=== PATIENT | female | born 1965 | race Caucasian/White ===

== ENCOUNTER → 2020-06-04 12:21 | Day surgery (SDC) | payer MEDICARE, BC, SELFPAY ==
[2020-06-04 12:52] VITALS: BMI 33.5
[2020-06-04] MEDS: eptinezumab-jjmr 100 MG in sodium chloride 0.9% (100 ml) 100 ML 202 MG IV (13:00)
[2020-06-04 13:03] VITALS: BMI 30.7
[2020-06-04 13:04] VITALS: BP 108/73; PULSE 109; RESP 18; TEMP 37.6; O2SAT 97
== END ==
LOC: OPS 12:34
PROVIDERS: PCP Internal Medicine; Visit Provider Internal Medicine
DX: G43.711 Chronic migraine without aura, intractable, with status migrainosus (principal)
CPT/HCPCS: 96365; J3032

== ENCOUNTER → 2020-09-02 13:08 | Day surgery (SDC) | payer BC, MEDICARE, SELFPAY ==
[2020-09-02 13:33] VITALS: BP 117/71; PULSE 90; RESP 16; TEMP 36.6; O2SAT 95
== END ==
PROVIDERS: PCP Internal Medicine; Visit Provider Internal Medicine
DX: G43.711 Chronic migraine without aura, intractable, with status migrainosus (principal)
CPT/HCPCS: 96365; J3032

== ENCOUNTER → 2020-09-05 12:50 | Day surgery (SDC) | payer BC, MEDICARE, SELFPAY ==
[2020-09-05 13:08] VITALS: BP 136/69; PULSE 90; RESP 18; TEMP 37.6; O2SAT 99
== END ==
PROVIDERS: PCP Internal Medicine; Visit Provider Internal Medicine
DX: G43.711 Chronic migraine without aura, intractable, with status migrainosus (principal)
CPT/HCPCS: 96360; J3032

== ENCOUNTER 2020-09-24 11:33 | Emergency (ER) | payer BC, MEDICARE, SELFPAY ==
[2020-09-24 12:00] VITALS: BP 101/70; PULSE 89; RESP 15; TEMP 36.5; O2SAT 98; BMI 28.0
--- NOTE | 2020-09-24 12:33 | ED_ITS ---
HPI - Headache General: Chief Complaint: Headache Stated Complaint: migraine *19 days Time Seen by Provider: 09/24/20 12:32 Source: patient Mode of arrival: ambulatory Limitations: no limitations History of Present Illness: HPI Narrative: Patient is a 55-year-old female who presents to ED today with complaints of a migraine headache over the past 19 days. Patient tells me she is originally from [place] and sees a migraine specialist there. She states over the past 19 days she has tried several abortive medications all without relief. She tells me she does monthly injecti ons for her migraine headaches. She states she is going on vacation on Tuesday to [place] and would like her headache subsided by then. Patient tells me she has had to seek emergency evaluation for refractory headaches previously. She tells me normally they treat her with IV steroids, Nubain, and Zofran. MD elicited complaint: headache Pertinent past history: migraines Onset (ago): day(s) Onset description: gradually Exacerbating factors: light and noise Relieving factors: nothing Associated symptoms: Reports no associated symptoms; Deny chest pain, confusion, fever(s), malaise, nausea, rash or vomiting Review of Systems Const: Denies: fever(s), chills, body aches, change in appetite, change in weight, fatigue, malaise or night sweats Eyes: Reports: photophobia; Denies: change in vision, blurry vision, floaters or seeing flashes Card: Denies: chest pain Resp: Denies: dyspnea GI: Denies: abdominal pain, nausea or vomiting Musc: Denies: neck pain, back pain or joint pain Skin/Breast: Denies: rash Neuro: Reports: headache(s); Denies: numbness in extremities, weakness in extremities, sensory changes, lack of coordination, difficulty walking, dizziness, vertigo, confusion, behavioral changes, Slurred speech present, difficulty communicating thoughts or seizure- like activity Physical Exam Const: COMMON NORMALS: no acute distress, average body habitus, patient oriented x3, no limitations, healthy appearing, alert and well nourished GENERAL APPEARANCE: cooperative ORIENTATION/CONSCIOUSNESS: Yes awake, Yes oriented to person, Yes oriented to place and Yes oriented to time HENMT: COMMON NORMALS: normocephalic and atraumatic HEAD & SCALP: normocephalic and atraumatic Neck/C-Spine: COMMON NORMALS: full ROM and no meningeal signs Neuro: HAN COMA SCALE: document GCS findings Han coma scale eye opening: Spontaneous Han coma scale verbal response: Orientated [place] coma scale motor response: [place] commands Han coma scale total score: 15 COMMON NORMALS: patient oriented x3, CN's II-XII intact bilaterally, moves all extremities, no focal motor deficits and no sensory deficits noted SENSORIUM/ORIENTATION: Yes alert, Yes oriented to person, Yes oriented to place and Yes oriented to time MENINGEAL SIGNS: Yes no meningeal signs Skin: COMMON NORMALS: no rashes or lesions noted GENERAL SKIN EXAM: no rashes or lesions noted Course Reevaluation(s): Reevaluation #1: Patient reporting no relief from IV dexamethasone, zofran, and depakote. Will try DHE. I have spoken to patient regarding my hesitancy due to lack of evidence using narcotic pain medications for migraine relief. Reevaluation #2: Patient states VAZQUEZ is down from an 8/10 to a 4 and feels comfortable going home at this time. Vital Signs: Vital signs: Vital Signs Temperature 97.7 F 09/24/20 12:00 Pulse Rate 89 09/24/20 12:00 Respiratory Rate 15 09/24/20 12:00 Blood Pressure 101/70 09/24/20 12:00 Pulse Oximetry 98 09/24/20 12:00 Discharge Plan Discharge Patient Disposition: Home Clinical Impression: Migraine Qualifiers: Migraine type: unspecified Status migrainosus presence: with status migrainosus Intractability: not intractable Qualified Code(s): G43.901 - Migraine, unspecified, not intractable, with status migrainosus Condition: Stable Prescriptions: No Action cyclobenzaprine 10 mg Tablet 10 mg PO BID PRN (Reason: Headache) RF: 0 atorvastatin 40 mg Tablet 40 mg PO QPM RF: 0 dihydroergotamine [Migranal] 0.5 mg/pump act. (4 mg/mL) [place],Non-Aerosol 1 spray INTRANASAL Q15M PRN (Reason: Headache) RF: 0 hydroxyzine HCl 50 mg Tablet 50 mg PO TID PRN (Reason: Migraine Headache) RF: 0 diphenhydramine HCl [Benadryl] 50 mg/mL Solution 100 mg IM BID PRN (Reason: Migraine Headache) RF: 0 levetiracetam [Keppra] 250 mg Tablet 250 mg PO BID PRN (Reason: Migraine Headache) RF: 0 chlorpromazine 25 mg Tablet 25 mg PO Q6H PRN (Reason: Headache) RF: 0 lidocaine [Lidoderm] 5 % Adhesive Patch,Medicated 1 patch transdermal DAILY PRN (Reason: Migraine Headache) RF: 0 clonazepam 2 mg Tablet 2 mg PO BID RF: 0 benztropine 2 mg Tablet 2 mg PO BID RF: 0 fluticasone propionate [Flonase] 50 mcg/actuation [place],Suspension 50 mcg INTRANASAL DAILY RF: 0 candesartan 8 mg Tablet 8 mg PO BID RF: 0 diclofenac sodium [Voltaren] 1 % Gel 2 g TOPICAL BID PRN (Reason: Pain) RF: 0 bacillus coagulans-inulin 1 billion-250 cell-mg Capsule 2 cap PO DIRECTED RF: 0 Vyepti 100 mg/mL Solution 100 mg IV DIRECTED RF: 0 melatonin 10 mg Tablet 10 mg PO QPM RF: 0 methocarbamol [Robaxin] 500 mg Tablet 500 mg PO QID PRN (Reason: Headache) RF: 0 methylphenidate HCl [Ritalin] 10 mg Tablet 10 mg PO DAILY RF: 0 ondansetron HCl [Zofran] 8 mg Tablet 8 mg PO Q8H PRN (Reason: Nausea) RF: 0 prochlorperazine maleate [Compazine] 10 mg Tablet 10 mg PO BID PRN (Reason: Nausea) RF: 0 venlafaxine [Effexor] 100 mg Tablet 150 mg PO DAILY RF: 0 potassium chloride [K-Dur] 20 mEq Tablet,Er Particles/Crystals 20 meq PO BID RF: 0 promethazine [Phenergan] 50 mg Tablet 50 mg PO TID PRN (Reason: Nausea) RF: 0 zolpidem [Ambien] 10 mg Tablet 10 mg PO QPM PRN (Reason: Sleep) RF: 0 tizanidine [Zanaflex] 4 mg Capsule 8 mg PO QPM RF: 0 Ubrelvy 50 mg Tablet 50 mg PO BID PRN (Reason: Headache) RF: 0 calcium 500 mg Tablet 500 mg PO DAILY RF: 0 multivitamin Tablet,Chewable 1 tab PO DAILY RF: 0 cholecalciferol (vitamin D3) [Vitamin D3] 25 mcg (1,000 unit) Tablet,Chewable 25 mcg PO DAILY RF: 0 magnesium 500 mg Tablet 15 mg PO DAILY RF: 0 Discharge Orders: Discharge ED (Routine); Ordered 09/24/20 Ordered By: Kimberly Mary Referrals: Neftaly Ingram MD [Primary Care Provider] - Patient Instructions: Headache - Migraine (Adult), Migraine Headache (ED) Coding Level of Care Code ED Lead Data Architect for Chg Fwd Exam Detailed
[2020-09-24] MEDS: sodium chloride 0.9% 1,000 ML 999 ML IV (13:20)
[2020-09-24] MEDS: ondansetron 2 mg/ML SDV 2 mL 4 MG IVP (13:21)
[2020-09-24] MEDS: dexamethasone 10 mg/mL INJ 8 MG IV (13:21)
[2020-09-24] MEDS: valproic acid inj 500 MG in sodium chloride 0.9% 50 ML 55 MG IV (13:21)
[2020-09-24] MEDS: dihydroergotamine 1 mg/mL Inj IVP (14:41)
[2020-09-24] MEDS: metoclopramide 5 mg/mL SDV 2 mL 10 MG IVP (14:47)
[2020-09-24] MEDS: diphenhydrAMINE 50 mg/mL SDV 1mL 100 MG IVP (15:35)
[2020-09-24 16:30] VITALS: BP 128/57; PULSE 84; O2SAT 99
--- NOTE | 2020-09-24 16:31 | PC.NURSE ---
vitals printed in chart
== END 2020-09-24 16:31 | disposition home or self-care (01) ==
PROVIDERS: Emergency Provider Physician Assistant; PCP Internal Medicine
DX: G43.901 Migraine, unspecified, not intractable, with status migrainosus (principal)
CPT/HCPCS: 96365; 96375; 99284; J1100; J1110; J1200; J2405; J2765; J7030

== ENCOUNTER 2020-10-09 14:34 | Emergency (ER) | payer BC, MEDICARE, SELFPAY ==
[2020-10-09 14:51] VITALS: BP 111/67; PULSE 86; RESP 16; TEMP 36.6; O2SAT 96; BMI 27.4
--- NOTE | 2020-10-09 16:27 | W.ED.HA ---
HPI - Headache General: Chief Complaint: Headache Stated Complaint: migraine Time Seen by Provider: 10/09/20 16:26 History of Present Illness: HPI Narrative: Patient is a 55-year-old female comes to the ED with migraine. Patient says she has a history of migraines. She states she sees a specialist in [place] for her migraines. This current migraine started 8 days ago. She says she is used her dihydroergotamine nasal spray and has not helped. She also has been taking Benadryl and promethazine to help with symptoms. Migraine is similar to her past migraines but states this one seems a more severe. Pain is located retro-orbital and is bilateral in the frontal region of head. She rates it currently an 9 out of 10. She has nausea and photophobia with it as well. She also says loud noises make it worse. She denies any neurological symptoms such as vision changes, numbness/tingling/weakness to extremities or face. Denies any fever, chills, emesis, abdominal pain, bladder or bowel symptoms. Associated symptoms: Deny chest pain, fever(s), nausea, rash or vomiting Review of Systems Const: Denies: fever(s), chills or fatigue Eyes: Reports: photophobia; Denies: change in vision or eye discomfort ENMT: Denies: throat pain, odynophagia, nasal discharge or nasal congestion Card: Denies: chest pain, palpitations, edema, swelling of feet/ankles, dyspnea on exertion or orthopnea Resp: Denies: dyspnea, productive cough or non-productive cough GI: Denies: abdominal pain, nausea, vomiting, diarrhea, constipation or hematochezia : Denies: flank pain, dysuria or hematuria Musc: Denies: neck pain, back pain or extremity swelling Skin/Breast: Denies: rash or new lesions Neuro: Reports: headache(s); Denies: numbness in extremities or weakness in extremities Physical Exam Const: COMMON NORMALS: no acute distress, patient oriented x3 and alert GENERAL APPEARANCE: cooperative and comfortable HENMT: COMMON NORMALS: normocephalic HEAD & SCALP: normocephalic MOUTH: Normal oral and palatal mucosa present THROAT: posterior oropharynx normal and uvula midline Neck/C-Spine: COMMON NORMALS: supple GENERAL: Yes normal visual inspection Resp: COMMON NORMALS: normal respiratory effort, No retractions, No use of accessory muscles and clear to auscultation bilaterally AUSCULTATION: clear to auscultation bilaterally Cardio: COMMON NORMALS: regular rate, regular rhythm, S1 normal heart sound present, S2 normal heart sound present, No gallops present (Cardio), No clicks present (Cardio), No murmurs present (Cardio) and Peripheral pulses 2+ throughout RATE: regular rate RHYTHM: regular rhythm HEART SOUNDS: S1 normal heart sound present and S2 normal heart sound present PERIPHERAL PULSES: Peripheral pulses 2+ throughout GI: COMMON NORMALS: Normal to inspection, nondistended, normoactive bowel sounds present, Soft to palpation, non-tender and no masses PALPATION: Yes Soft to palpation : COMMON NORMALS: Yes no CVA tenderness BLADDER/KIDNEY EXAM: Yes no CVA tenderness Back/Pelvis: COMMON NORMALS: no CVA tenderness Extremity: COMMON NORMALS: normal to inspection Neuro: COMMON NORMALS: patient oriented x3, CN's II-XII intact bilaterally, moves all extremities, no focal motor deficits and no sensory deficits noted SENSORIUM/ORIENTATION: Yes alert SENSORY EXAM: Yes extremities (intact) MOTOR EXAM: 5/5 motor strength present throughout Skin: GENERAL SKIN EXAM: dry skin Course Vital Signs: Vital signs: Vital Signs Temperature 97.8 F 10/09/20 14:51 Pulse Rate 77 10/09/20 20:59 Respiratory Rate 18 10/09/20 20:59 Blood Pressure 144/88 10/09/20 20:59 Pulse Oximetry 98 10/09/20 20:59 MDM - Headache MDM Narrative: Medical decision making narrative: Patient is a 55-year-old female comes in the ED with a migraine. Patient has been having a migraine currently for the last 8 days. She has a history of migraines. Neuro exam was normal and CT of head showed no acute findings. Patient was given IV Toradol, Decadron, Reglan, Benadryl and symptoms did not improve. I then initiated the DHE protocol and patient was given the full protocol with minimal improvement in migraine. She was then given a dose of Phenergan and IV Dilaudid and her migraine improved. She was discharged home and told to follow-up with her PCP in 7 to 10 days for reevaluation. Return to ED regards given. Patient understood agree with plan. Imaging Data^: CT Head: Attestation: I personally reviewed and interpreted this imaging study as follows: Radiologist's impression: [address] [address] [address] Scan Report Signed Patient: Tammy Radford Unit #: [id number] : 1965 Age/Sex: 55 / F ADM Date: 10/09/20 Loc: ER Room/Bed: Attending Dr: Ordering Provider/Ordering MD: Petar Chapin Date of Service: 10/09/20 Procedure(s): CT head wo con* [id number] Accession Number(s): [id number] Report Number: [id number] PROCEDURE INFORMATION: Exam: CT Head Without Contrast Exam date and time: 10/09/2020 4:37 PM Age: 55 years old Clinical indication: Pain; Other: N/v; Headache; Migraine; Additional info: Migraine for 8 days TECHNIQUE: Imaging protocol: Computed tomography of the head without contrast. Total images: 209 Radiation optimization: All CT scans at this facility use at least one of these dose optimization techniques: automated exposure control; mA and/or kV adjustment per patient size (includes targeted exams where dose is matched to clinical indication); or iterative reconstruction. COMPARISON: No relevant prior studies available. RADIATION DOSE METRICS: Total DLP (mGy-cm): 866.79 FINDINGS: Brain: No evidence of active or acute intracranial pathologic process, hemorrhage, or trauma. No visible evidence of diffuse cerebral edema or generalized demyelination. No mass effect. No midline shift. No hyperdense MCA or insular ribbon sign. Cerebral ventricles: No ventriculomegaly. Paranasal sinuses: No visible evidence of active paranasal sinus disease. Evidence of mild chronic right ethmoid sinusitis. Previous bilateral antrectomies. Mastoid air cells: Visualized mastoid air cells are well aerated. Bones/joints: Unremarkable. No acute fracture. Soft tissues: Unremarkable. CT/CT head wo con* [id number] IMPRESSION: No evidence of active or acute intracranial pathologic process, hemorrhage, or trauma. Radiation Dose CTDIVOL = (mGy): DLP = 866.79 (mGy-cm) Dictated By: Talib Grimm Signed By: Talib Grimm Signed Date/Time: 10/09/201737 DD/ 36 Discharge Plan Discharge Patient Disposition: Home Clinical Impression: Migraine Qualifiers: Migraine type: without aura Status migrainosus presence: with status migrainosus Intractability: not intractable Qualified Code(s): G43.001 - Migraine without aura, not intractable, with status migrainosus Condition: Stable Prescriptions: No Action cyclobenzaprine 10 mg Tablet 10 mg PO BID PRN (Reason: Headache) RF: 0 atorvastatin 40 mg Tablet 40 mg PO QPM RF: 0 dihydroergotamine [Migranal] 0.5 mg/pump act. (4 mg/mL) [place],Non-Aerosol 1 spray INTRANASAL Q15M PRN (Reason: Headache) RF: 0 hydroxyzine HCl 50 mg Tablet 50 mg PO TID PRN (Reason: Migraine Headache) RF: 0 diphenhydramine HCl [Benadryl] 50 mg/mL Solution 100 mg IM BID PRN (Reason: Migraine Headache) RF: 0 levetiracetam [Keppra] 250 mg Tablet 250 mg PO BID PRN (Reason: Migraine Headache) RF: 0 chlorpromazine 25 mg Tablet 25 mg PO Q6H PRN (Reason: Headache) RF: 0 lidocaine [Lidoderm] 5 % Adhesive Patch,Medicated 1 patch transdermal DAILY PRN (Reason: Migraine Headache) RF: 0 clonazepam 2 mg Tablet 2 mg PO BID RF: 0 benztropine 2 mg Tablet 2 mg PO BID RF: 0 fluticasone propionate [Flonase] 50 mcg/actuation [place],Suspension 50 mcg INTRANASAL DAILY RF: 0 candesartan 8 mg Tablet 8 mg PO BID RF: 0 diclofenac sodium [Voltaren] 1 % Gel 2 g TOPICAL BID PRN (Reason: Pain) RF: 0 bacillus coagulans-inulin 1 billion-250 cell-mg Capsule 2 cap PO DIRECTED RF: 0 Vyepti 100 mg/mL Solution 100 mg IV DIRECTED RF: 0 melatonin 10 mg Tablet 10 mg PO QPM RF: 0 methocarbamol [Robaxin] 500 mg Tablet 500 mg PO QID PRN (Reason: Headache) RF: 0 methylphenidate HCl [Ritalin] 10 mg Tablet 10 mg PO DAILY RF: 0 ondansetron HCl [Zofran] 8 mg Tablet 8 mg PO Q8H PRN (Reason: Nausea) RF: 0 prochlorperazine maleate [Compazine] 10 mg Tablet 10 mg PO BID PRN (Reason: Nausea) RF: 0 venlafaxine [Effexor] 100 mg Tablet 150 mg PO DAILY RF: 0 potassium chloride [K-Dur] 20 mEq Tablet,Er Particles/Crystals 20 meq PO BID RF: 0 promethazine [Phenergan] 50 mg Tablet 50 mg PO TID PRN (Reason: Nausea) RF: 0 zolpidem [Ambien] 10 mg Tablet 10 mg PO QPM PRN (Reason: Sleep) RF: 0 tizanidine [Zanaflex] 4 mg Capsule 8 mg PO QPM RF: 0 Ubrelvy 50 mg Tablet 50 mg PO BID PRN (Reason: Headache) RF: 0 calcium 500 mg Tablet 500 mg PO DAILY RF: 0 multivitamin Tablet,Chewable 1 tab PO DAILY RF: 0 cholecalciferol (vitamin D3) [Vitamin D3] 25 mcg (1,000 unit) Tablet,Chewable 25 mcg PO DAILY RF: 0 magnesium 500 mg Tablet 15 mg PO DAILY RF: 0 Discharge Orders: Discharge ED (Routine); Ordered 10/09/20 Ordered By: Petar Chapin Referrals: Neftaly Ingram MD [Primary Care Provider] - Discharge Diet: Regular Discharge Activity: Resume usual activity Patient Instructions: Migraine Headache (ED) Activity Restrictions/Additional Instructions: Follow-up with medical provider as directed in 7 to 10 days reevaluation. Continue taking all home medications as prescribed. Return to the ER or your medical provider if condition worsens. Please read and understand discharge instructions. Thank you for choosing [facility] for your healthcare needs today. Please realize this is an emergency room and that we are providing you with a medical screening exam and this may not be complete and all inclusive of all the testing and or work up that you may need to determine your ailment or severity of your illness. It is very important that you follow up as instructed or that you return to the Emergency Department should you have concerns or if your condition changes or worsens in any way. Coding Level of Care Code ED Road Production General Manager for Maria Fernanda Fwtiffany Exam Comprehensive
--- NOTE | 2020-10-09 16:37 | CTR_ITS ---
PROCEDURE INFORMATION: Exam: CT Head Without Contrast Exam date and time: 10/09/2020 4:37 PM Age: 55 years old Clinical indication: Pain; Other: N/v; Headache; Migraine; Additional info: Migraine for 8 days TECHNIQUE: Imaging protocol: Computed tomography of the head without contrast. Total images: 209 Radiation optimization: All CT scans at this facility use at least one of these dose optimization techniques: automated exposure control; mA and/or kV adjustment per patient size (includes targeted exams where dose is matched to clinical indication); or iterative reconstruction. COMPARISON: No relevant prior studies available. RADIATION DOSE METRICS: Total DLP (mGy-cm): 866.79 FINDINGS: Brain: No evidence of active or acute intracranial pathologic process, hemorrhage, or trauma. No visible evidence of diffuse cerebral edema or generalized demyelination. No mass effect. No midline shift. No hyperdense MCA or insular ribbon sign. Cerebral ventricles: No ventriculomegaly. Paranasal sinuses: No visible evidence of active paranasal sinus disease. Evidence of mild chronic right ethmoid sinusitis. Previous bilateral antrectomies. Mastoid air cells: Visualized mastoid air cells are well aerated. Bones/joints: Unremarkable. No acute fracture. Soft tissues: Unremarkable. CT/CT head wo con* [id number] IMPRESSION: No evidence of active or acute intracranial pathologic process, hemorrhage, or trauma. Radiation Dose CTDIVOL = (mGy): DLP = 866.79 (mGy-cm)
[2020-10-09] MEDS: metoclopramide 5 mg/mL SDV 2 mL 10 MG IVP (17:01)
[2020-10-09] MEDS: ketorolac 30 mg/mL INJ IVP (17:01)
[2020-10-09] MEDS: diphenhydrAMINE 50 mg/mL SDV 1mL 25 MG IVP (17:01)
[2020-10-09] MEDS: dexamethasone 4 mg/mL INJ 10 MG IVP (17:02)
[2020-10-09] MEDS: sodium chloride 0.9% 500 ML 999 ML IV (17:05)
[2020-10-09] MEDS: diphenhydrAMINE 50 mg/mL SDV 1mL IVP (18:16)
[2020-10-09] MEDS: dihydroergotamine 1 mg/mL Inj IVP ×4 (18:17→20:31)
[2020-10-09 19:09] VITALS: BP 116/60; PULSE 92; RESP 18; O2SAT 98
[2020-10-09 20:11] VITALS: BP 115/60; PULSE 68; RESP 17; O2SAT 98
[2020-10-09] MEDS: promethazine 25 mg/mL SDV 1 mL IM (20:55)
[2020-10-09] MEDS: HYDROmorphone 1 mg/mL INJ 1 mL IVP (20:56)
[2020-10-09 20:59] VITALS: BP 144/88; PULSE 77; RESP 18; O2SAT 98
[2020-10-09 21:35] VITALS: BP 161/97; PULSE 78; RESP 17; O2SAT 97
== END 2020-10-09 21:35 | disposition home or self-care (01) ==
PROVIDERS: Emergency Provider Physician Assistant; PCP Internal Medicine
DX: G43.001 Migraine without aura, not intractable, with status migrainosus (principal)
CPT/HCPCS: 70450; 96372; 96374; 96375; 96376; 99284; J1100; J1110; J1170; J1200; J1885; J2550; J2765; J7040

== ENCOUNTER 2020-10-20 11:29 | Emergency (ER) | payer BC, MEDICARE, SELFPAY ==
[2020-10-20 11:49] VITALS: BP 98/64; PULSE 90; RESP 16; TEMP 36.7; O2SAT 99; BMI 27.4
[2020-10-20 12:31] VITALS: BP 107/71; PULSE 82; TEMP 36.8; O2SAT 99
--- NOTE | 2020-10-20 12:40 | XRR_ITS ---
PROCEDURE INFORMATION: Exam: XR Lumbosacral Spine Exam date and time: 10/20/2020 12:40 PM Age: 55 years old Clinical indication: Injury or trauma; Fall; Blunt trauma (contusions or hematomas) TECHNIQUE: Imaging protocol: XR of the lumbosacral spine. Views: 2 or 3 views. COMPARISON: No relevant prior studies available. FINDINGS: Bones/joints: Normal. No acute fracture. Normal alignment. Soft tissues: Unremarkable. XR/XR lumbar spine 2-3V* [id number] IMPRESSION: No acute findings.
--- NOTE | 2020-10-20 12:53 | ED_ITS ---
HPI - Back Pain/Injury General: Chief Complaint: Back Pain/Injury Stated Complaint: BACK PAIN/FALL Time Seen by Provider: 10/20/20 12:32 History of Present Illness: HPI Narrative: Patient states she tripped on a rug fell against a corner vanity striking the back area lower left side few days ago. She said she originally had bruising now she says continue to hurt. MD elicited complaint: back pain and fall Pertinent past history: prior back pain Onset (ago): day(s) Timing: constant Severity: moderate Similar Symptoms Previously: Yes Quality: aching Location: left lower back Radiation: none Exacerbating factors: movement Relieving factors: movement Context: fall Associated symptoms: Reports no associated symptoms; Deny abdominal pain, chills, fever(s), nausea or vomiting Review of Systems Const: Denies: fever(s), chills or body aches Eyes: Denies: change in vision or blurry vision ENMT: Denies: throat pain or nasal congestion Card: Denies: chest pain or dyspnea on exertion Resp: Denies: dyspnea, productive cough or non-productive cough GI: Denies: abdominal pain, nausea or vomiting Musc: Reports: back pain; Denies: extremity pain Skin/Breast: Denies: rash Neuro: Denies: headache(s) Psych: Denies: anxiety or depression [place]/Lymph: Denies: easy bruising Physical Exam Const: COMMON NORMALS: no acute distress, average body habitus and patient oriented x3 HENMT: COMMON NORMALS: normocephalic HEAD & SCALP: normal to inspection and normocephalic FACE & SINUS: normal facial exam Eye: COMMON NORMALS: conjunctivae normal GENERAL EYE: appearance normal, both eyes and all related structures CONJUNCTIVA: Yes conjunctivae normal Neck/C-Spine: COMMON NORMALS: no JVD Chest: COMMONS NORMALS: normal inspection of the chest Resp: COMMON NORMALS: normal respiratory effort and clear to auscultation bilaterally AUSCULTATION: clear to auscultation bilaterally Cardio: COMMON NORMALS: no JVD, regular rate and regular rhythm RATE: regular rate RHYTHM: regular rhythm GI: COMMON NORMALS: Normal to inspection, nondistended, normoactive bowel sounds present Back/Pelvis: COMMON NORMALS: thoracic and lumbar spine normal to inspection THORACIC SPINE/UPPER BACK: Yes normal to inspection LUMBAR SPINE/LOWER BACK: Yes normal to inspection and Yes paraspinal muscle tenderness Lumbar paraspinal muscle tenderness: left PELVIS: Yes buttocks normal Extremity: COMMON NORMALS: normal to inspection and full ROM Neuro: COMMON NORMALS: patient oriented x3 Course Vital Signs: Vital signs: Vital Signs Temperature 98.3 F 10/20/20 12:31 Pulse Rate 78 10/20/20 13:43 Respiratory Rate 16 10/20/20 11:49 Blood Pressure 103/58 10/20/20 13:43 Pulse Oximetry 97 10/20/20 13:43 MDM - Back Pain/Injury MDM Narrative: Medical decision making narrative: Patient requesting strong pain medication for her pain. Advised her that based on x-ray findings physical findings and see no reason for strong pain medication. Encourage her to continue take Tylenol apply ice and moist heat to area and follow-up primary care provider. Discharge Plan Discharge Patient Disposition: Home Clinical Impression: Contusion Qualifiers: Encounter type: initial encounter Contusion area: lower back Qualified Code(s): S30.0XXA - Contusion of lower back and pelvis, initial encounter Condition: Stable Prescriptions: No Action cyclobenzaprine 10 mg Tablet 10 mg PO BID PRN (Reason: Headache) RF: 0 atorvastatin 40 mg Tablet 40 mg PO QPM RF: 0 dihydroergotamine [Migranal] 0.5 mg/pump act. (4 mg/mL) [place],Non-Aerosol 1 spray INTRANASAL Q15M PRN (Reason: Headache) RF: 0 hydroxyzine HCl 50 mg Tablet 50 mg PO TID PRN (Reason: Migraine Headache) RF: 0 diphenhydramine HCl [Benadryl] 50 mg/mL Solution 100 mg IM BID PRN (Reason: Migraine Headache) RF: 0 levetiracetam [Keppra] 250 mg Tablet 250 mg PO BID PRN (Reason: Migraine Headache) RF: 0 chlorpromazine 25 mg Tablet 25 mg PO Q6H PRN (Reason: Headache) RF: 0 lidocaine [Lidoderm] 5 % Adhesive Patch,Medicated 1 patch transdermal DAILY PRN (Reason: Migraine Headache) RF: 0 clonazepam 2 mg Tablet 2 mg PO BID RF: 0 benztropine 2 mg Tablet 2 mg PO BID RF: 0 fluticasone propionate [Flonase] 50 mcg/actuation [place],Suspension 50 mcg INTRANASAL DAILY RF: 0 candesartan 8 mg Tablet 8 mg PO BID RF: 0 diclofenac sodium [Voltaren] 1 % Gel 2 g TOPICAL BID PRN (Reason: Pain) RF: 0 bacillus coagulans-inulin 1 billion-250 cell-mg Capsule 2 cap PO DIRECTED RF: 0 Vyepti 100 mg/mL Solution 100 mg IV DIRECTED RF: 0 melatonin 10 mg Tablet 10 mg PO QPM RF: 0 methocarbamol [Robaxin] 500 mg Tablet 500 mg PO QID PRN (Reason: Headache) RF: 0 methylphenidate HCl [Ritalin] 10 mg Tablet 10 mg PO DAILY RF: 0 ondansetron HCl [Zofran] 8 mg Tablet 8 mg PO Q8H PRN (Reason: Nausea) RF: 0 prochlorperazine maleate [Compazine] 10 mg Tablet 10 mg PO BID PRN (Reason: Nausea) RF: 0 venlafaxine [Effexor] 100 mg Tablet 150 mg PO DAILY RF: 0 potassium chloride [K-Dur] 20 mEq Tablet,Er Particles/Crystals 20 meq PO BID RF: 0 promethazine [Phenergan] 50 mg Tablet 50 mg PO TID PRN (Reason: Nausea) RF: 0 zolpidem [Ambien] 10 mg Tablet 10 mg PO QPM PRN (Reason: Sleep) RF: 0 tizanidine [Zanaflex] 4 mg Capsule 8 mg PO QPM RF: 0 Ubrelvy 50 mg Tablet 50 mg PO BID PRN (Reason: Headache) RF: 0 calcium 500 mg Tablet 500 mg PO DAILY RF: 0 multivitamin Tablet,Chewable 1 tab PO DAILY RF: 0 cholecalciferol (vitamin D3) [Vitamin D3] 25 mcg (1,000 unit) Tablet,Chewable 25 mcg PO DAILY RF: 0 magnesium 500 mg Tablet 15 mg PO DAILY RF: 0 Discharge Orders: Discharge ED (Routine); Ordered 10/20/20 Ordered By: Rodrigo Montemayor Referrals: Neftaly Ingram MD [Primary Care Provider] - Discharge Diet: Usual diet Discharge Activity: Increase activity as tolerated Patient Instructions: Contusion in Adults (ED) Activity Restrictions/Additional Instructions: Alternate ice and moist heat to area. Can take Tylenol 1000 mg as needed every 6 hours as needed for pain follow-up your primary care provider if no significant improvement Coding Level of Care Code ED Cheesemaker for Chg Fwd Exam Comprehensive
[2020-10-20 13:40] VITALS: BP 103/58; PULSE 76; O2SAT 99
[2020-10-20 13:43] VITALS: BP 103/58; PULSE 78; O2SAT 97
== END 2020-10-20 13:46 | disposition home or self-care (01) ==
PROVIDERS: Emergency Provider Nurse Practitioner Family; PCP Internal Medicine
DX: S30.0XXA Contusion of lower back and pelvis, initial encounter (principal); W18.09XA Striking against other object with subsequent fall, initial encounter
CPT/HCPCS: 72100; 99282

== ENCOUNTER → 2020-11-03 08:37 | Outpatient (BNVA) | payer BC, MEDICARE, SELFPAY | PROVIDERS: PCP Internal Medicine; Visit Provider Anesthesiology Pain Medicine | DX: G89.29 Other chronic pain (principal); M79.18 Myalgia, other site; M54.2 Cervicalgia; G43.909 Migraine, unspecified, not intractable, without status migrainosus; M54.81 Occipital neuralgia; Z79.891 Long term (current) use of opiate analgesic | CPT/HCPCS: 20553; 64405; 99205; J1030; J3490 ==

== ENCOUNTER 2021-01-12 12:41 | Outpatient (CLI) | payer BC, MEDICARE, SELFPAY ==
[2021-01-12 13:19] VITALS: BP 113/69; PULSE 84; RESP 16; TEMP 36.7; O2SAT 98; BMI 25.0
[2021-01-12 14:00] VITALS: BP 114/73; PULSE 75; RESP 16; O2SAT 99
[2021-01-12 15:01] VITALS: BP 115/66; PULSE 72; RESP 18; TEMP 36.7; O2SAT 98
== END 2021-01-12 12:42 | disposition home or self-care (01) ==
LOC: OPS 12:53
PROVIDERS: PCP Internal Medicine; Visit Provider Nurse Practitioner Family
DX: U07.1 COVID-19 (principal)
CPT/HCPCS: 96365

== ENCOUNTER 2021-02-22 07:39 | Emergency (ER) | payer BC, MEDICARE, SELFPAY ==
[2021-02-22 07:42] VITALS: BP 112/72; PULSE 91; RESP 18; TEMP 36.6; O2SAT 99; BMI 25.0
[2021-02-22 07:59] VITALS: BP 109/66; PULSE 86; RESP 18; O2SAT 98
--- NOTE | 2021-02-22 08:28 | W.ED.HA ---
HPI - Headache General: Chief Complaint: Headache Stated Complaint: SEVERE H/A Time Seen by Provider: 02/22/21 07:46 Source: patient Mode of arrival: ambulatory Limitations: no limitations History of Present Illness: HPI Narrative: 55-year-old female presents emergency department chief complaint of having severe migraine related headache that is been ongoing progressive getting worse in the last 4 days. Patient reports just had the recent of a grandchild in which he missed one of her Botox injections.. She reports that her sleeping habits as well as with weather changes increases her migraine amount and duration. She reports that she has also missed her Botox injection recently last couple of days prior to the of her grandchild. The patient reports that she had been taking her migraine medications to no avail. Patient reports this is been persistently ongoing for 4 days is getting worse. She does report some ocular involvement reporting that the pain is noted surrounding the top of her head. Radiating down both sides. MD elicited complaint: headache and migraine Onset (ago): day(s) (4) Onset description: gradually and while at rest Location: frontal, temporal and occipital Severity: severe Quality & Timing: aching and throbbing Exacerbating factors: light and noise Relieving factors: rest, prescription medication and dark room Associated symptoms: Reports nausea and vomiting; Deny neck stiffness Treatments prior to arrival: antiemetic and migraine medication Review of Systems GI: Reports: nausea and vomiting [facility] ED PFSH: Medical History Migraine Family History Mother Cancer RECTAL Father Graves disease Sister Migraines Grandmother Migraines Diabetes Hypertension Brother Hypertension Grandfather Dementia Social History (Updated 11/03/20 @ 09:18 by Yaneth Centeno LPN) Smoking and tobacco status: never smoked Alcohol intake: never Caregiver/support person: Yes Lives independently: Yes History of recent travel: No Physical Exam Narrative: EXAM NARRATIVE: Patient appears in a dark room wearing sunglasses appears to be in moderate distress due to pain and discomfort. No focal neuro deficits appreciated GCS 15, NIH of 0 Const: COMMON NORMALS: patient oriented x3 and healthy appearing EXAM LIMITATIONS: no altered mental status GENERAL APPEARANCE: not lethargic ORIENTATION/CONSCIOUSNESS: Yes awake, Yes oriented to person, Yes oriented to place and Yes oriented to time; not patient obtunded and not lethargic HENMT: COMMON NORMALS: normocephalic and atraumatic HEAD & SCALP: normocephalic and atraumatic Eye: COMMON NORMALS: Equal, round and reactive pupils present and EOMs intact bilaterally PUPIL: Yes Equal, round and reactive pupils present Neck/C-Spine: COMMON NORMALS: full ROM, supple, no meningeal signs and no JVD Lymph: LYMPHATIC: no lymphadenopathy noted Chest: COMMONS NORMALS: normal inspection of the chest and normal palpation of entire chest wall Resp: COMMON NORMALS: normal respiratory effort, No retractions and clear to auscultation bilaterally EFFORT & INSPECTION: Yes able to speak in complete sentences and Yes symmetric chest movement AUSCULTATION: clear to auscultation bilaterally Cardio: COMMON NORMALS: no JVD, regular rate and regular rhythm RATE: regular rate RHYTHM: regular rhythm GI: COMMON NORMALS: Normal to inspection, nondistended, normoactive bowel sounds present, Soft to palpation and non-tender INSPECTION: Yes normal to inspection PALPATION: Yes Soft to palpation : COMMON NORMALS: Yes no CVA tenderness BLADDER/KIDNEY EXAM: Yes no CVA tenderness Back/Pelvis: COMMON NORMALS: no CVA tenderness Extremity: COMMON NORMALS: normal to inspection and full ROM Neuro: COMMON NORMALS: patient oriented x3, CN's II-XII intact bilaterally, moves all extremities and no focal motor deficits SENSORIUM/ORIENTATION: Yes oriented to person, Yes oriented to place, Yes oriented to time and No lethargic MENINGEAL SIGNS: Yes no meningeal signs Psych: COMMON NORMALS: mental status grossly normal, Normal thought process present, cooperative and normal affect THOUGHT PROCESS: Normal thought process present Skin: COMMON NORMALS: no rashes or lesions noted GENERAL SKIN EXAM: no rashes or lesions noted Course ED course: Due to the patient's symptoms and condition lab work and imaging will be obtained we will continue to follow. Vital Signs: Vital signs: Vital Signs Temperature 97.9 F 02/22/21 07:42 Pulse Rate 73 02/22/21 10:32 Respiratory Rate 14 02/22/21 10:32 Blood Pressure 118/78 02/22/21 10:32 Pulse Oximetry 100 02/22/21 10:32 MDM - Headache MDM Narrative: Medical decision making narrative: Due to the patient's significant addition basic lab work was obtained patient provided several medications and seemed to improve her headache from a 10 pain scale down to a 5 out of 10 pain score prior to subsequent discharge patient was advised to further follow-up with primary care or her migraine physician in the next 1 week when she is advised to return in the interim if any of her symptoms persist or worse. Lab Data: Labs: Lab Results 02/22/21 02/22/21 02/22/21 08:41 08:41 08:41 WBC 8.9 10^3/uL 10^3/ uL (4.0-10.0) RBC 4.54 10^6/uL 10^6 /uL (4.1-5.3) Hgb 13.3 g/dL g/dL (11.5-15.3) Hct 42.5 % % (37.0-47.0) MCV 93.6 fl fl (81-99) MCH 29.3 pg pg (28.0-34.0) MCHC 31.3 g/dL g/dL (30.0-36.0) RDW 14.4 % % (12.1-15.1) Plt Count 289 10^3/cmm 10^3 /cmm (130-400) MPV 10.6 fL H fL (7.4-10.4) Neut % (Auto) 70.4 % % Lymph % (Auto) 21.3 % % [place] % (Auto) 5.3 % % Eos % (Auto) 2.1 % % Baso % (Auto) 0.7 % % Neut # (Auto) 6.25 10^3/uL 10^3 /uL (1.8-7.7) Lymph # (Auto) 1.9 10^3/uL 10^3/ uL (0.8-4.8) [place] # (Auto) 0.5 10^3/uL 10^3/ uL (0.2-0.9) Eos # (Auto) 0.2 10^3/uL 10^3/ uL (0.0-0.8) Baso # (Auto) 0.1 10^3/uL 10^3/ uL (0.0-0.1) Nucleated RBC % (a uto) 0 % % Nucleated RBCs # 0.0 /100WBC /100W BC Sodium 140 mmol/L mmol/L (136-145) Potassium 4.0 mmol/L mmol/L (3.5-5.1) Chloride 105 mmol/L mmol/L (98-107) Carbon Dioxide 25 mmol/L mmol/L (22-29) Anion Gap 14.0 (5-19) BUN 13 mg/dL mg/dL (6-20) Creatinine 0.6 mg/dL mg/dL (0.5-0.9) GFR Calculation 103.0 mL/min mL/m in (90-130) Glucose 77 mg/dL mg/dL (65-115) Calculated Osmolal ity 289 mOsm/kg mOsm/ kg (285-295) Calcium 9.0 mg/dL mg/dL (8.5-10.5) Total Bilirubin 0.3 mg/dL mg/dL (0.15-1.2) AST 13 U/L U/L (0-32) ALT 11 U/L U/L (0-33) Alkaline Phosphata se 95 IU/L IU/L (35-105) Total Protein 7.5 g/dL g/dL (6.6-8.7) Albumin 4.5 g/dL g/dL (3.5-5.2) Globulin 3.0 g/dL g/dL (1.3-4.6) Urine Color Yellow (Yellow) Urine Appearance Clear (CLEAR) Urine pH 6 (5-7) Ur Specific Gravit y 1.010 (1.005-1.030) Urine Protein Neg (Negative) Urine Glucose (UA) Norm (Normal) Urine Ketones Negative (Negative) Urine Blood Neg (Negative) Urine Nitrate Negative (Negative) Urine Bilirubin Neg (Negative) Urine Urobilinogen Norm mg/dL mg/dL (Negative) Ur Leukocyte Yu ase Negative (Negative) Discharge Plan Discharge Patient Disposition: Home Clinical Impression: Migraine, Headache Condition: Stable Prescriptions: New Zofran 4 mg tablet 4 mg PO Q8H PRN (Reason: nausea and vomiting) 4 Days Qty: 20 RF: 0 No Action clonazepam 1 mg tablet 1 mg PO .HS RF: 0 topiramate 100 mg tablet 100 mg PO BID RF: 0 silodosin 8 mg capsule 8 mg PO DAILY RF: 0 dextroamphetamine-amphetamine [Adderall] 15 mg tablet 15 mg PO DAILY RF: 0 venlafaxine 150 mg capsule,extended release 24hr 150 mg PO DAILY RF: 0 tramadol 50 mg tablet 50 mg PO Q6H PRNRF: 0 cyclobenzaprine 10 mg Tablet 10 mg PO BID PRN (Reason: Headache) RF: 0 atorvastatin 40 mg Tablet 40 mg PO QPM RF: 0 dihydroergotamine [Migranal] 0.5 mg/pump act. (4 mg/mL) [place],Non-Aerosol 1 spray INTRANASAL Q15M PRN (Reason: Headache) RF: 0 hydroxyzine HCl 50 mg Tablet 50 mg PO TID PRN (Reason: Migraine Headache) RF: 0 diphenhydramine HCl [Benadryl] 50 mg/mL Solution 100 mg IM BID PRN (Reason: Migraine Headache) RF: 0 levetiracetam [Keppra] 250 mg Tablet 250 mg PO BID PRN (Reason: Migraine Headache) RF: 0 chlorpromazine 25 mg Tablet 25 mg PO Q6H PRN (Reason: Headache) RF: 0 lidocaine [Lidoderm] 5 % Adhesive Patch,Medicated 1 patch transdermal DAILY PRN (Reason: Migraine Headache) RF: 0 benztropine 2 mg Tablet 2 mg PO BID RF: 0 fluticasone propionate [Flonase] 50 mcg/actuation [place],Suspension 50 mcg INTRANASAL DAILY RF: 0 candesartan 8 mg Tablet 8 mg PO BID RF: 0 diclofenac sodium [Voltaren] 1 % Gel 2 g TOPICAL BID PRN (Reason: Pain) RF: 0 bacillus coagulans-inulin 1 billion-250 cell-mg Capsule 2 cap PO DIRECTED RF: 0 melatonin 10 mg Tablet 10 mg PO QPM RF: 0 methocarbamol [Robaxin] 500 mg Tablet 500 mg PO QID PRN (Reason: Headache) RF: 0 ondansetron HCl [Zofran] 8 mg Tablet 8 mg PO Q8H PRN (Reason: Nausea) RF: 0 prochlorperazine maleate [Compazine] 10 mg Tablet 10 mg PO BID PRN (Reason: Nausea) RF: 0 potassium chloride [K-Dur] 20 mEq Tablet,Er Particles/Crystals 20 meq PO BID RF: 0 promethazine [Phenergan] 50 mg Tablet 50 mg PO TID PRN (Reason: Nausea) RF: 0 zolpidem [Ambien] 10 mg Tablet 10 mg PO QPM PRN (Reason: Sleep) RF: 0 tizanidine [Zanaflex] 4 mg Capsule 8 mg PO QPM RF: 0 Ubrelvy 50 mg Tablet 50 mg PO BID PRN (Reason: Headache) RF: 0 calcium 500 mg Tablet 500 mg PO DAILY RF: 0 multivitamin Tablet,Chewable 1 tab PO DAILY RF: 0 cholecalciferol (vitamin D3) [Vitamin D3] 25 mcg (1,000 unit) Tablet,Chewable 25 mcg PO DAILY RF: 0 magnesium 500 mg Tablet 15 mg PO DAILY RF: 0 Discharge Orders: Discharge ED (Routine); Ordered 02/22/21 Ordered By: Jeffry Doe Referrals: Neftaly Ingram MD [Primary Care Provider] - Discharge Diet: Advance as tolerated Discharge Activity: Increase activity as tolerated Patient Instructions: Migraine Headache (ED), Acute Headache (ED), Opioid Safety Activity Restrictions/Additional Instructions: Please follow-up with your primary care doctor in 2 to 3 days, take medication as prescribed and return in the interim if any of her symptoms persist or worse. Coding Level of Care Code ED Recruiting Manager for Maria Fernanda Fwd Exam Comprehensive
[2021-02-22 08:58] LABS: Add Urine Microscopic? NO; Charge for UA Resulting for Rev
[2021-02-22 08:59] LABS: Basophils # 0.1 10^3/uL (0.0-0.1); Basophils % 0.7 %; Eosinophils # 0.2 10^3/uL (0.0-0.8); Eosinophils % 2.1 %; Hematocrit 42.5 % (37.0-47.0); Hemoglobin 13.3 g/dL (11.5-15.3); Lymphocytes # 1.9 10^3/uL (0.8-4.8); Lymphocytes % 21.3 %; Mean Corpuscular HGB Conc 31.3 g/dL (30.0-36.0); Mean Corpuscular Hemoglobin 29.3 pg (28.0-34.0); Mean Corpuscular Volume 93.6 fl (81-99); Mean Platelet Volume 10.6 fL (7.4-10.4); Monocytes # 0.5 10^3/uL (0.2-0.9); Monocytes % 5.3 %; Neutrophils # 6.25 10^3/uL (1.8-7.7); Neutrophils % 70.4 %; Nucleated Red Blood Cells % 0 %; Platelet Count 289 10^3/cmm (130-400); Red Blood Count 4.54 10^6/uL (4.1-5.3); Red Cell Distribution Width 14.4 % (12.1-15.1); White Blood Count 8.9 10^3/uL (4.0-10.0)
[2021-02-22] MEDS: sodium chloride 0.9% 1,000 ML 999 ML IV (09:00)
[2021-02-22] MEDS: ondansetron 2 mg/ML SDV 2 mL 4 MG IVP (09:00)
[2021-02-22] MEDS: diphenhydrAMINE 50 mg/mL SDV 1mL 25 MG IVP ×2 (09:03→11:17)
[2021-02-22] MEDS: dihydroergotamine 1 mg/mL Inj IVP ×2 (09:07→10:32)
[2021-02-22] MEDS: dexamethasone 10 mg/mL INJ IVP (09:09)
[2021-02-22 09:12] LABS: Bilirubin Urine Neg (Negative); Blood Urine Neg (Negative); Glucose Urine UA Norm (Normal); Ketones Urine Negative (Negative); Leukocyte Esterase Urine Negative (Negative); Nitrate Urine Negative (Negative); Protein Urine Neg (Negative); Urine Appearance Clear (CLEAR); Urine Color Yellow (Yellow); Urobilinogen Urine Norm (Negative); pH Urine 6 (5-7)
[2021-02-22 09:14] LABS: Alanine Aminotransferase 11 U/L (0-33); Albumin Level 4.5 g/dL (3.5-5.2); Alkaline Phosphatase 95 IU/L (35-105); Aspartate Amino Transferase 13 U/L (0-32); Blood Urea Nitrogen 13 mg/dL (6-20); Carbon Dioxide 25 mmol/L (22-29); Chloride 105 mmol/L (98-107); Glucose 77 mg/dL (65-115); Osmolality Calculated 289 mOsm/kg (285-295); Sodium 140 mmol/L (136-145); Total Bilirubin 0.3 mg/dL (0.15-1.2); Total Protein 7.5 g/dL (6.6-8.7)
[2021-02-22] MEDS: magnesium sulfate premix 2 GM/50 ML PIGGYBACK IV (09:14)
[2021-02-22 10:32] VITALS: BP 118/78; PULSE 73; RESP 14; O2SAT 100
[2021-02-22 12:20] VITALS: BP 118/78; PULSE 73; RESP 14; O2SAT 100
== END 2021-02-22 12:20 | disposition home or self-care (01) ==
PROVIDERS: Emergency Provider Emergency Medicine; PCP Internal Medicine
DX: G43.909 Migraine, unspecified, not intractable, without status migrainosus (principal)
CPT/HCPCS: 80053; 81003; 85025; 96365; 96375; 96376; 99284; J1100; J1110; J1200; J2405; J3475; J7030

== ENCOUNTER → 2021-02-26 13:35 | Outpatient (BNVA) | payer BC, MEDICARE, SELFPAY | PROVIDERS: PCP Internal Medicine; Visit Provider Anesthesiology Pain Medicine | DX: M79.18 Myalgia, other site (principal); M54.81 Occipital neuralgia; M54.2 Cervicalgia; G43.909 Migraine, unspecified, not intractable, without status migrainosus | CPT/HCPCS: 20553; 99213 ==

== ENCOUNTER 2022-07-30 09:13 | Emergency (ER) | payer MEDICARE, SELFPAY ==
[2022-07-30 09:19] VITALS: BP 124/66; PULSE 99; RESP 16; TEMP 36.5; O2SAT 100; BMI 23.3
--- NOTE | 2022-07-30 09:25 | ECG_ITS ---
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 Measurements Intervals [place] Rate: 92 P: 64 SD: 149 QRS: 52 QRSD: 84 T: 50 QT: 338 QTc: 418 Interpretive Statements SINUS RHYTHM POSSIBLE LEFT ATRIAL ENLARGEMENT [-0.1mV P-WAVE IN V1/V2] No previous ECG available for comparison Electronically Signed On 07-30-2022 13:50:39 CDT by Clarence Ann M.D. [id number]
--- NOTE | 2022-07-30 09:56 | XR_ITS ---
WS: [id number] EXAMINATION: XR chest 1V portable [id number] REASON FOR EXAM: chest pain COMPARISON: None available. ORDER DATE: 07/30/2022 10:00 AM TECHNIQUE: A single, portable frontal chest x-ray was obtained. X-RAY FINDINGS: The lungs are clear. Pleural spaces are clear. No pleural effusions or pneumothorax. Cardiomediastinal silhouette is normal. No evidence for pulmonary edema. Soft tissue and osseous structures are unremarkable. Previous cervical fusion. XR/XR chest 1V portable [id number] IMPRESSION: Unremarkable frontal portable chest x-ray.
--- NOTE | 2022-07-30 10:00 | ED_ITS ---
HPI - Chest Pain General: Chief Complaint: Chest Pain Stated Complaint: chest pain Time Seen by Provider: 07/30/22 09:14 Source: patient Mode of arrival: ambulatory History of Present Illness: 48-year-old female who presents to the emergency room with complaint of chest pain. She had 2 episodes last 24 hours first 1 she was in her kitchen was not doing any strenuous lasted for about 20 minutes and resolved spontaneously she d id not have any further episodes. This morning she began having chest pain that was escalating also began at rest she took a prescription of the family members sublingual nitroglycerin which resolved the plane completely after about 10 minutes there was no radiation of the pain she was nauseous but not dyspneic or diaphoretic. She is not recently been ill she has no known history of coronary artery disease no previous cardiac evaluations. MD complaint: chest pain Onset (ago): day(s) (1) Timing of current episode: episodic Prior episodes: Yes Onset: during rest Pain location: substernal Pain radiation: none Severity: moderate Quality: tightness and heaviness Relieving factors: nitroglycerin Exacerbating factors: nothing Associated symptoms: Deny abdominal pain, diaphoresis, dyspnea, fever(s), leg edema, nausea, palpitations, sense of impending doom, syncope or vomiting Review of Systems Const: Denies: fever(s), chills or diaphoresis ENMT: Denies: throat pain, ear or mastoid pain, nasal discharge or nasal congestion Card: Denies: palpitations or syncope Resp: Denies: dyspnea GI: Denies: abdominal pain, nausea or vomiting : Denies: flank pain, difficulty voiding, dysuria, urinary frequency or urinary urgency Skin/Breast: Denies: rash or pruritus PFSH ED PFSH: Medical History Migraine Family History Mother Cancer RECTAL Father Graves disease Sister Migraines Grandmother Migraines Diabetes Hypertension Brother Hypertension Grandfather Dementia Social History Smoking and tobacco status: never smoked Alcohol intake: never Caregiver/support person: Yes Lives independently: Yes Physical Exam Const: COMMON NORMALS: no acute distress GENERAL APPEARANCE: cooperative and comfortable ORIENTATION/CONSCIOUSNESS: Yes awake, Yes oriented to person, Yes oriented to place and Yes oriented to time HENMT: COMMON NORMALS: normocephalic, atraumatic and hearing grossly normal bilaterally HEAD & SCALP: normocephalic and atraumatic Resp: COMMON NORMALS: normal respiratory effort, No retractions, No use of accessory muscles and clear to auscultation bilaterally AUSCULTATION: clear to auscultation bilaterally Cardio: COMMON NORMALS: regular rate, regular rhythm and No murmurs present (Cardio) RATE: regular rate RHYTHM: regular rhythm GI: COMMON NORMALS: Soft to palpation and No hepatosplenomegaly present AUSCULTATION: Yes normoactive bowel sounds PALPATION: Yes Soft to palpation, No Tenderness to palpation present (GI), No Guarding due to palpation present (GI) and Yes No hepatosplenomegaly present Extremity: COMMON NORMALS: normal to inspection, capillary refill normal, no clubbing, cyanosis or edema, no calf tenderness and no pedal edema Neuro: SENSORIUM/ORIENTATION: Yes oriented to person, Yes oriented to place and Yes oriented to time Skin: COMMON NORMALS: no rashes or lesions noted GENERAL SKIN EXAM: no rashes or lesions noted Course Vital Signs: Vital signs: Vital Signs Temperature 97.7 F 07/30/22 09:19 Pulse Rate 83 07/30/22 13:37 Respiratory Rate 15 07/30/22 13:37 Blood Pressure 124/69 07/30/22 13:37 Pulse Oximetry 100 07/30/22 13:37 Oxygen Delivery Me thod Room Air 07/30/22 12:06 MDM - Chest Pain Medical Decision Making Patient was set up for Lexiscan sestamibi stress test as an outpatient. We will try to get this expedited. Troponins are negative at this time. No other significant findings EKG does not show any acute changes chest x-ray is normal. Discussed with the patient we will discharge home she is already on atorvastatin and aspirin. She has any worsening or changes symptoms return to the hospital immediately. Medical Records I reviewed the patient's medical records. Lab Data I reviewed the patient's lab results. 07/30/22 09:25 07/30/22 09:25 Radiology Impressions Chest X-Ray 07/30/22 09:56 IMPRESSION: Unremarkable frontal portable chest x-ray. Laboratory Results WBC 7.5 10^3/uL (4.0-10.0) 07/30/22 09:25 RBC 4.07 10^6/uL (4.1-5.3) L 07/30/22 09:25 Hgb 12.2 g/dL (11.5-15.3) 07/30/22 09:25 Hct 38.5 % (37.0-47.0) 07/30/22 09:25 MCV 94.6 fl (81-99) 07/30/22 09:25 MCH 30.0 pg (28.0-34.0) 07/30/22 09:25 MCHC 31.7 g/dL (30.0-36.0) 07/30/22 09:25 RDW 13.6 % (12.1-15.1) 07/30/22 09:25 Plt Count 291 10^3/cmm (130-400) 07/30/22 09:25 MPV 10.2 fL (7.4-10.4) 07/30/22 09:25 Neut % (Auto) 60.6 % 07/30/22 09:25 Lymph % (Auto) 30.7 % 07/30/22 09:25 Stevens % (Auto) 6.1 % 07/30/22 09:25 Eos % (Auto) 1.3 % 07/30/22 09:25 Baso % (Auto) 0.9 % 07/30/22 09:25 Neut # (Auto) 4.56 10^3/uL (1.8-7.7) 07/30/22 09:25 Lymph # (Auto) 2.3 10^3/uL (0.8-4.8) 07/30/22 09:25 Stevens # (Auto) 0.5 10^3/uL (0.2-0.9) 07/30/22 09:25 Eos # (Auto) 0.1 10^3/uL (0.0-0.8) 07/30/22 09:25 Baso # (Auto) 0.1 10^3/uL (0.0-0.1) 07/30/22 09:25 Nucleated RBC % (auto) 0 % 07/30/22 09:25 Nucleated RBCs # 0.0 /100WBC 07/30/22 09:25 PT 13.30 SECONDS (12.1-14.9) 07/30/22 09:25 INR 0.99 (0.8-1.2) 07/30/22 09:25 APTT 29.2 SECONDS (23.9-36.7) 07/30/22 09:25 Sodium 139 mmol/L (136-145) 07/30/22 09:25 Potassium 3.5 mmol/L (3.5-5.1) 07/30/22 09:25 Chloride 105 mmol/L (98-107) 07/30/22 09:25 Carbon Dioxide 23 mmol/L (22-29) 07/30/22 09:25 Anion Gap 14.5 (5-19) 07/30/22 09:25 BUN 19 mg/dL (6-20) 07/30/22 09:25 Creatinine 0.8 mg/dL (0.5-0.9) 07/30/22 09:25 GFR Calculation 73.7 mL/min (90-130) L 07/30/22 09:25 Glucose 74 mg/dL (65-115) 07/30/22 09:25 Calculated Osmolality 289 mOsm/kg (285-295) 07/30/22 09:25 Calcium 8.5 mg/dL (8.5-10.5) 07/30/22 09:25 Total Bilirubin 0.2 mg/dL (0.15-1.2) 07/30/22 09:25 AST 23 U/L (0-32) 07/30/22 09:25 ALT 15 U/L (0-33) 07/30/22 09:25 Alkaline Phosphatase 71 U/L (35-105) 07/30/22 09:25 Troponin T Baseline 6 ng/L (0-10) 07/30/22 09:25 Troponin T 120 Minute 6.00 ng/L (0-10) 07/30/22 11:25 Delta Troponin T 0 ABS# (0-10) 07/30/22 11:25 Total Protein 6.7 g/dL (6.6-8.7) 07/30/22 09:25 Albumin 4.4 g/dL (3.5-5.2) 07/30/22 09:25 Globulin 2.3 g/dL (1.3-4.6) 07/30/22 09:25 Discharge Plan Discharge Patient Disposition: Home Clinical Impression: Atypical chest pain Condition: Stable Prescriptions: New aspirin 81 mg tablet,delayed release (DR/EC) 81 mg PO DAILY Qty: 30 0RF No Action topiramate [Topamax] 100 mg tablet 100 mg PO BID Nurtec ODT 75 mg tablet,disintegrating 75 mg PO EVERY OTHER DAY clonazepam 1 mg tablet 2 mg PO QPM silodosin 8 mg capsule 8 mg PO DAILY Rx Instructions: must administer with a meal/food cyclobenzaprine 10 mg Tablet 10 mg PO BID PRN (Reason: Headache) atorvastatin 40 mg Tablet 40 mg PO QPM dihydroergotamine [Migranal] 0.5 mg/pump act. (4 mg/mL) [place],Non-Aerosol 1 spray INTRANASAL Q15M PRN (Reason: Headache) Rx Instructions: max 2 days/week diphenhydramine HCl [Benadryl] 50 mg/mL Solution 100 mg IM BID PRN (Reason: Migraine Headache) levetiracetam [Keppra] 250 mg Tablet 250 mg PO BID PRN (Reason: Migraine Headache) chlorpromazine 25 mg Tablet 25 mg PO Q6H PRN (Reason: Headache) lidocaine [Lidoderm] 5 % Adhesive Patch,Medicated 1 patch transdermal DAILY PRN (Reason: Migraine Headache) benztropine 2 mg Tablet 2 mg PO BID fluticasone propionate [Flonase] 50 mcg/actuation [place],Suspension 50 mcg INTRANASAL DAILY bacillus coagulans-inulin 1 billion-250 cell-mg Capsule 2 cap PO DIRECTED Rx Instructions: after meals melatonin 10 mg Tablet 10 mg PO QPM ondansetron HCl [Zofran] 8 mg Tablet 8 mg PO Q8H PRN (Reason: Nausea) prochlorperazine maleate [Compazine] 10 mg Tablet 10 mg PO BID PRN (Reason: Nausea) Rx Instructions: take with benadryl injections promethazine [Phenergan] 50 mg Tablet 50 mg PO TID PRN (Reason: Nausea) cholecalciferol (vitamin D3) [Vitamin D3] 25 mcg (1,000 unit) Tablet,Chewable 25 mcg PO DAILY candesartan 8 mg tablet 8 mg PO BID potassium chloride 20 mEq tablet,ER particles/crystals 20 meq PO BID tizanidine [Zanaflex] 4 mg capsule 8 mg PO QPM venlafaxine 100 mg tablet 100 mg PO DAILY venlafaxine 50 mg tablet 50 mg PO DAILY Calcium 500 500 mg calcium (1,250 mg) Tablet,Chewable 500 mg PO DAILY magnesium 250 mg Tablet 250 mg PO DAILY topiramate 50 mg tablet 50 mg PO BID Voltaren 1 % Gel 2 g TOPICAL BID Rx Instructions: apply to single elbow, wrist or hand; for hand includes palm/fingers/back of hand ondansetron 8 mg Film 8 mg PO Q8H PRN (Reason: Nausea) Multivitamin Gummies 200 mcg Tablet,Chewable 1 tab PO DAILY doxepin 25 mg capsule 25 mg PO DAILY olanzapine 10 mg tablet 10 mg PO BEDTIME levothyroxine 50 mcg tablet 50 mcg PO DAILY memantine 5 mg tablet 10 mg PO BID Immune Support 1,000-50 mg Tablet, Effervescent 1 ea PO DAILY Vyvanse 30 mg tablet,chewable 30 mg PO DAILY Ubrelvy 100 mg tablet 100 - 200 mg PO DAILY Vyepti 100 mg/mL Solution See Rx Instructions .ROUTE .COMPLEX Rx Instructions: as directed every three months Discharge Orders: Discharge ED (Routine); Ordered 07/30/22 Ordered By: Charly Flowers Referrals: Aurelio Ley DO [Primary Care Provider] - Discharge Diet: Usual diet Discharge Activity: Limit activity as instructed Patient Instructions: Opioid Safety, Pain Management Activity Restrictions/Additional Instructions: You were seen today for chest pain. Your EKGs and cardiac enzymes were normal. Recommend that you take a baby aspirin daily we will set you up for a Lexiscan sestamibi stress test. Avoid exertional activities until this is completed return to the emergency room Worsening problems. Coding Level of Care Code ED Integration Technician for Maria Fernanda Westfall
[2022-07-30 10:07] LABS: Basophils # 0.1 10^3/uL (0.0-0.1); Basophils % 0.9 %; Eosinophils # 0.1 10^3/uL (0.0-0.8); Eosinophils % 1.3 %; Hematocrit 38.5 % (37.0-47.0); Hemoglobin 12.2 g/dL (11.5-15.3); Lymphocytes # 2.3 10^3/uL (0.8-4.8); Lymphocytes % 30.7 %; Mean Corpuscular HGB Conc 31.7 g/dL (30.0-36.0); Mean Corpuscular Volume 94.6 fl (81-99); Mean Platelet Volume 10.2 fL (7.4-10.4); Monocytes # 0.5 10^3/uL (0.2-0.9); Monocytes % 6.1 %; Neutrophils # 4.56 10^3/uL (1.8-7.7); Neutrophils % 60.6 %; Nucleated Red Blood Cells % 0 %; Platelet Count 291 10^3/cmm (130-400); Red Blood Count 4.07 10^6/uL (4.1-5.3); Red Cell Distribution Width 13.6 % (12.1-15.1); White Blood Count 7.5 10^3/uL (4.0-10.0)
[2022-07-30] MEDS: aspirin 81 mg Chew Tablet 324 MG PO (10:11)
[2022-07-30] MEDS: nitroglycerin 1 gm/inch oint Pkt 0.5 INCH TOPICAL (10:12)
[2022-07-30 10:14] VITALS: BP 113/65; PULSE 84; RESP 15; O2SAT 100
[2022-07-30 10:15] LABS: INR 0.99 (0.8-1.2)
[2022-07-30 10:16] LABS: Partial Thromboplastin Time 29.2 SECONDS (23.9-36.7)
[2022-07-30 10:22] LABS: Alanine Aminotransferase 15 U/L (0-33); Albumin Level 4.4 g/dL (3.5-5.2); Alkaline Phosphatase 71 U/L (35-105); Anion Gap 14.5 (5-19); Aspartate Amino Transferase 23 U/L (0-32); Blood Urea Nitrogen 19 mg/dL (6-20); Calcium 8.5 mg/dL (8.5-10.5); Carbon Dioxide 23 mmol/L (22-29); Chloride 105 mmol/L (98-107); Globulin 2.3 g/dL (1.3-4.6); Glomerular Filtration Rate 73.7 mL/min (90-130); Glucose 74 mg/dL (65-115); Osmolality Calculated 289 mOsm/kg (285-295); Potassium 3.5 mmol/L (3.5-5.1); Sodium 139 mmol/L (136-145); Total Bilirubin 0.2 mg/dL (0.15-1.2); Total Protein 6.7 g/dL (6.6-8.7)
[2022-07-30 10:24] LABS: Troponin(5th) Baseline 6 ng/L (0-10)
[2022-07-30 11:05] VITALS: BP 119/80; O2SAT 98
--- NOTE | 2022-07-30 11:35 | ECG_ITS ---
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 Measurements Intervals [place] Rate: 69 P: 64 MT: 155 QRS: 53 QRSD: 85 T: 47 QT: 397 QTc: 428 Interpretive Statements SINUS RHYTHM POSSIBLE LEFT ATRIAL ENLARGEMENT [-0.1mV P-WAVE IN V1/V2] Compared to ECG 07/30/2022 09:25:00 No significant changes Electronically Signed On 07-30-2022 13:52:46 CDT by Clarence Ann M.D. [id number]
[2022-07-30 12:03] VITALS: RESP 15
[2022-07-30] MEDS: morphine 4 mg/mL SDV 1 mL 2 MG IVP (12:03)
[2022-07-30 12:06] VITALS: BP 117/65; PULSE 85; RESP 15; O2SAT 100
[2022-07-30 12:22] LABS: Troponin 5 2HR Delta 0 ABS# (0-10)
[2022-07-30 13:37] VITALS: BP 124/69; PULSE 83; RESP 15; O2SAT 100
--- NOTE | 2022-07-30 13:43 | DCPLANNER ---
Addendum entered by Lulu Perdomo 08/19/22 09:29: this was cancelled Original Note: capacity planning manager had message to schedule an outpatient stress test for patient. capacity planning manager faxed signed order to centralized scheduling, who will call patient with appointment information.
== END 2022-07-30 13:38 | disposition home or self-care (01) ==
PROVIDERS: Emergency Provider Family Medicine; PCP Internal Medicine
DX: R07.89 Other chest pain (principal)
CPT/HCPCS: 36415; 71045; 80053; 84484; 85025; 85610; 85730; 93005; 96374; 99285; J2270

== ENCOUNTER 2022-08-03 09:38 | Observation (INO) | payer OTHER, MEDICARE, SELFPAY ==
[2022-08-03] VITALS (16 sets, daily range): BP systolic 84–126; BP diastolic 43–74; PULSE 71–116; RESP 14–17; TEMP 36.6–37.2; O2SAT 95–100; BMI 23.3; BMI 25.0
--- NOTE | 2022-08-03 09:42 | XR_ITS ---
WS: [id number] Portable AP upright chest, 08/03/2022 Clinical Data: chest pain Comparison: Portable chest, 07/30/2022 Findings: No nodules, masses or effusions are seen. The heart is normal. The pulmonary vascularity is not increased. No pneumonia or pneumothorax is seen. The patient has had an anterior cervical disc f usion. There are monitor leads on the chest wall. XR/XR chest 1V portable [id number] Impression: Negative chest.
--- NOTE | 2022-08-03 09:55 | ECG_ITS ---
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 Measurements Intervals [place] Rate: 76 P: 65 VA: 149 QRS: 50 QRSD: 89 T: 57 QT: 380 QTc: 430 Interpretive Statements SINUS RHYTHM POSSIBLE LEFT ATRIAL ENLARGEMENT [-0.1mV P-WAVE IN V1/V2] Compared to ECG 07/30/2022 11:35:02 No significant changes Electronically Signed On 08-03-2022 14:49:00 CDT by Clarence Ann M.D. [id number]
--- NOTE | 2022-08-03 10:08 | ED_ITS ---
HPI - Chest Pain General: Chief Complaint: Chest Pain Stated Complaint: chest pain Time Seen by Provider: 08/03/22 09:42 Source: patient Mode of arrival: ambulatory History of Present Illness: 56-year-old female who presents to the emergency room complaining of intermittent chest pain. She was seen on 414 for chest pain. Enzymes and EKG were unremarkable she was discharged home on aspirin and atorvastatin. She states since then she has continued to have intermittent chest pain including this morning having worsening pain. She took nitro for it sublingual but it did not help at all. She did notice significant decrease in her blood pressure. She denies any shortness of breath she still has some mild chest discomfort when she takes a deep breath coughs or with palpation there is no worsening of her symptoms. She has a stress test scheduled for next week through her signal inspector that she sees in [place]. She has not previously had stress testing angiogram or known coronary artery disease. She is a non-smoker. MD complaint: chest pain Onset (ago): week(s) Timing of current episode: episodic Prior episodes: Yes Onset: during rest Pain location: substernal Pain radiation: none Severity: mild Quality: tightness and aching Relieving factors: nothing Exacerbating factors: nothing Associated symptoms: Deny abdominal pain, diaphoresis, dyspnea, fever(s), leg edema, nausea, palpitations, sense of impending doom, syncope or vomiting Review of Systems Const: Denies: fever(s), chills, fatigue, malaise or diaphoresis ENMT: Denies: throat pain, ear or mastoid pain, nasal discharge or nasal congestion Card: Reports: chest pain; Denies: palpitations, irregular heart rhythm, edema, swelling of feet/ankles or syncope Resp: Denies: dyspnea, productive cough or non-productive cough GI: Denies: abdominal pain, nausea or vomiting : Denies: flank pain, difficulty voiding, dysuria, urinary frequency or urinary urgency Skin/Breast: Denies: rash or pruritus PFSH ED PFSH: Medical History Migraine Family History Mother Cancer RECTAL Father Graves disease Sister Migraines Grandmother Migraines Diabetes Hypertension Brother Hypertension Grandfather Dementia Social History Smoking and tobacco status: never smoked Alcohol intake: never Caregiver/support person: Yes Lives independently: Yes Physical Exam Const: GENERAL APPEARANCE: cooperative and comfortable ORIENTATIO N/CONSCIOUSNESS: Yes awake, Yes oriented to person, Yes oriented to place and Yes oriented to time HENMT: COMMON NORMALS: normocephalic, atraumatic and hearing grossly normal bilaterally HEAD & SCALP: normocephalic and atraumatic Resp: COMMON NORMALS: normal respiratory effort, No retractions, No use of accessory muscles and clear to auscultation bilaterally AUSCULTATION: clear to auscultation bilaterally Cardio: COMMON NORMALS: regular rate, regular rhythm and No murmurs present (Cardio) RATE: regular rate RHYTHM: regular rhythm GI: COMMON NORMALS: Soft to palpation and No hepatosplenomegaly present AUSCULTATION: Yes normoactive bowel sounds PALPATION: Yes Soft to palpation, No Tenderness to palpation present (GI), No Guarding due to palpation present (GI) and Yes No hepatosplenomegaly present Extremity: COMMON NORMALS: normal to inspection, capillary refill normal, no clubbing, cyanosis or edema, no calf tenderness and no pedal edema Neuro: SENSORIUM/ORIENTATION: Yes oriented to person, Yes oriented to place and Yes oriented to time Skin: COMMON NORMALS: no rashes or lesions noted GENERAL SKIN EXAM: no rashes or lesions noted Course Vital Signs: Vital signs: Vital Signs Temperature 97.9 F 08/03/22 09:43 Pulse Rate 80 08/03/22 11:30 Respiratory Rate 16 08/03/22 11:30 Blood Pressure 102/54 08/03/22 11:30 Pulse Oximetry 97 08/03/22 11:30 Oxygen Delivery Me thod Room Air 08/03/22 09:43 MDM - Chest Pain Medical Decision Making Patient is been complaining of intermittent chest pain for over a week now. EKG and troponins are negative. She has a sestamibi stress test set up but has not yet had it completed. No relief with the nitro this morning she did get some relief with a GI cocktail fluids improved her blood pressure after she arrived here. Discussed Dr. Meraz will admit for further evaluation and completion of the troponin series Medical Records I reviewed the patient's medical records. Lab Data I reviewed the patient's lab results. 08/03/22 09:50 08/03/22 09:50 Radiology Impressions Chest X-Ray 08/03/22 09:42 Impression: Negative chest. Laboratory Results WBC 7.3 10^3/uL (4.0-10.0) 08/03/22 09:50 RBC 4.24 10^6/uL (4.1-5.3) 08/03/22 09:50 Hgb 12.6 g/dL (11.5-15.3) 08/03/22 09:50 Hct 40.1 % (37.0-47.0) 08/03/22 09:50 MCV 94.6 fl (81-99) 08/03/22 09:50 MCH 29.7 pg (28.0-34.0) 08/03/22 09:50 MCHC 31.4 g/dL (30.0-36.0) 08/03/22 09:50 RDW 13.6 % (12.1-15.1) 08/03/22 09:50 Plt Count 282 10^3/cmm (130-400) 08/03/22 09:50 MPV 10.3 fL (7.4-10.4) 08/03/22 09:50 Neut % (Auto) 62.1 % 08/03/22 09:50 Lymph % (Auto) 29.4 % 08/03/22 09:50 [place] % (Auto) 5.9 % 08/03/22 09:50 Eos % (Auto) 1.4 % 08/03/22 09:50 Baso % (Auto) 0.7 % 08/03/22 09:50 Neut # (Auto) 4.55 10^3/uL (1.8-7.7) 08/03/22 09:50 Lymph # (Auto) 2.2 10^3/uL (0.8-4.8) 08/03/22 09:50 [place] # (Auto) 0.4 10^3/uL (0.2-0.9) 08/03/22 09:50 Eos # (Auto) 0.1 10^3/uL (0.0-0.8) 08/03/22 09:50 Baso # (Auto) 0.1 10^3/uL (0.0-0.1) 08/03/22 09:50 Nucleated RBC % (auto) 0 % 08/03/22 09:50 Nucleated RBCs # 0.0 /100WBC 08/03/22 09:50 Sodium 140 mmol/L (136-145) 08/03/22 09:50 Potassium 3.7 mmol/L (3.5-5.1) 08/03/22 09:50 Chloride 108 mmol/L (98-107) H 08/03/22 09:50 Carbon Dioxide 23 mmol/L (22-29) 08/03/22 09:50 Anion Gap 12.7 (5-19) 08/03/22 09:50 BUN 13 mg/dL (6-20) 08/03/22 09:50 Creatinine 0.7 mg/dL (0.5-0.9) 08/03/22 09:50 GFR Calculation 85.9 mL/min (90-130) L 08/03/22 09:50 Glucose 81 mg/dL (65-115) 08/03/22 09:50 Calculated Osmolality 289 mOsm/kg (285-295) 08/03/22 09:50 Calcium 8.8 mg/dL (8.5-10.5) 08/03/22 09:50 Total Bilirubin 0.2 mg/dL (0.15-1.2) 08/03/22 09:50 AST 16 U/L (0-32) 08/03/22 09:50 ALT 12 U/L (0-33) 08/03/22 09:50 Alkaline Phosphatase 71 U/L (35-105) 08/03/22 09:50 Troponin T Baseline 7 ng/L (0-10) 08/03/22 09:50 Total Protein 6.5 g/dL (6.6-8.7) L 08/03/22 09:50 Albumin 4.3 g/dL (3.5-5.2) 08/03/22 09:50 Globulin 2.2 g/dL (1.3-4.6) 08/03/22 09:50 Discharge Plan Discharge Patient Disposition: Placed in Observation Clinical Impression: Chest pain Condition: Stable Prescriptions: No Action topiramate [Topamax] 100 mg tablet 100 mg PO BID Nurtec ODT 75 mg tablet,disintegrating 75 mg PO EVERY OTHER DAY clonazepam 1 mg tablet 2 mg PO QPM silodosin 8 mg capsule 8 mg PO DAILY Rx Instructions: must administer with a meal/food cyclobenzaprine 10 mg Tablet 10 mg PO BID PRN (Reason: Headache) atorvastatin 40 mg Tablet 40 mg PO QPM dihydroergotamine [Migranal] 0.5 mg/pump act. (4 mg/mL) [place],Non-Aerosol 1 spray INTRANASAL Q15M PRN (Reason: Headache) Rx Instructions: max 2 days/week diphenhydramine HCl [Benadryl] 50 mg/mL Solution 100 mg IM BID PRN (Reason: Migraine Headache) levetiracetam [Keppra] 250 mg Tablet 250 mg PO BID PRN (Reason: Migraine Headache) chlorpromazine 25 mg Tablet 25 mg PO Q6H PRN (Reason: Headache) lidocaine [Lidoderm] 5 % Adhesive Patch,Medicated 1 patch transdermal DAILY PRN (Reason: Migraine Headache) benztropine 2 mg Tablet 2 mg PO BID fluticasone propionate [Flonase] 50 mcg/actuation [place],Suspension 50 mcg INTRANASAL DAILY bacillus coagulans-inulin 1 billion-250 cell-mg Capsule 2 cap PO DIRECTED Rx Instructions: after meals melatonin 10 mg Tablet 10 mg PO QPM ondansetron HCl [Zofran] 8 mg Tablet 8 mg PO Q8H PRN (Reason: Nausea) prochlorperazine maleate [Compazine] 10 mg Tablet 10 mg PO BID PRN (Reason: Nausea) Rx Instructions: take with benadryl injections promethazine [Phenergan] 50 mg Tablet 50 mg PO TID PRN (Reason: Nausea) cholecalciferol (vitamin D3) [Vitamin D3] 25 mcg (1,000 unit) Tablet,Chewable 25 mcg PO DAILY candesartan 8 mg tablet 8 mg PO BID potassium chloride 20 mEq tablet,ER particles/crystals 20 meq PO BID tizanidine [Zanaflex] 4 mg capsule 8 mg PO QPM venlafaxine 100 mg tablet 100 mg PO DAILY venlafaxine 50 mg tablet 50 mg PO DAILY Calcium 500 500 mg calcium (1,250 mg) Tablet,Chewable 500 mg PO DAILY magnesium 250 mg Tablet 250 mg PO DAILY topiramate 50 mg tablet 50 mg PO BID Voltaren 1 % Gel 2 g TOPICAL BID Rx Instructions: apply to single elbow, wrist or hand; for hand includes palm/fingers/back of hand ondansetron 8 mg Film 8 mg PO Q8H PRN (Reason: Nausea) Multivitamin Gummies 200 mcg Tablet,Chewable 1 tab PO DAILY doxepin 25 mg capsule 25 mg PO DAILY olanzapine 10 mg tablet 10 mg PO BEDTIME levothyroxine 50 mcg tablet 50 mcg PO DAILY memantine 5 mg tablet 10 mg PO BID Immune Support 1,000-50 mg Tablet, Effervescent 1 ea PO DAILY Vyvanse 30 mg tablet,chewable 30 mg PO DAILY Ubrelvy 100 mg tablet 100 - 200 mg PO DAILY Vyepti 100 mg/mL Solution See Rx Instructions .ROUTE .COMPLEX Rx Instructions: as directed every three months aspirin 81 mg tablet,delayed release (DR/EC) 81 mg PO DAILY Qty: 30 0RF Referrals: Aurelio Ley DO [Primary Care Provider] - Coding Level of Care Code ED Asset Protection Representative for Maria Fern[facility] Westfall
[2022-08-03 10:16] LABS: Basophils # 0.1 10^3/uL (0.0-0.1); Basophils % 0.7 %; Eosinophils # 0.1 10^3/uL (0.0-0.8); Eosinophils % 1.4 %; Hematocrit 40.1 % (37.0-47.0); Hemoglobin 12.6 g/dL (11.5-15.3); Lymphocytes # 2.2 10^3/uL (0.8-4.8); Lymphocytes % 29.4 %; Mean Corpuscular HGB Conc 31.4 g/dL (30.0-36.0); Mean Corpuscular Hemoglobin 29.7 pg (28.0-34.0); Mean Corpuscular Volume 94.6 fl (81-99); Mean Platelet Volume 10.3 fL (7.4-10.4); Monocytes # 0.4 10^3/uL (0.2-0.9); Monocytes % 5.9 %; Neutrophils # 4.55 10^3/uL (1.8-7.7); Neutrophils % 62.1 %; Nucleated Red Blood Cells % 0 %; Platelet Count 282 10^3/cmm (130-400); Red Blood Count 4.24 10^6/uL (4.1-5.3); Red Cell Distribution Width 13.6 % (12.1-15.1); White Blood Count 7.3 10^3/uL (4.0-10.0)
[2022-08-03 10:28] LABS: Alanine Aminotransferase 12 U/L (0-33); Albumin Level 4.3 g/dL (3.5-5.2); Alkaline Phosphatase 71 U/L (35-105); Anion Gap 12.7 (5-19); Aspartate Amino Transferase 16 U/L (0-32); Blood Urea Nitrogen 13 mg/dL (6-20); Calcium 8.8 mg/dL (8.5-10.5); Carbon Dioxide 23 mmol/L (22-29); Chloride 108 mmol/L (98-107); Creatinine Clr Calc Pharmacy 85.5877; Globulin 2.2 g/dL (1.3-4.6); Glomerular Filtration Rate 85.9 mL/min (90-130); Glucose 81 mg/dL (65-115); Osmolality Calculated 289 mOsm/kg (285-295); Potassium 3.7 mmol/L (3.5-5.1); Sodium 140 mmol/L (136-145); Total Bilirubin 0.2 mg/dL (0.15-1.2); Total Protein 6.5 g/dL (6.6-8.7)
[2022-08-03 10:32] LABS: Troponin(5th) Baseline 7 ng/L (0-10)
[2022-08-03] MEDS: morphine 4 mg/mL SDV 1 mL 2 MG IVP ×2 (10:38→16:28)
[2022-08-03] MEDS: aspirin 81 mg Chew Tablet 324 MG PO (10:39)
[2022-08-03] MEDS: sodium chloride 0.9% 1,000 ML 999 ML IV (10:47)
[2022-08-03] MEDS: lidocaine 2% viscous 15 ML, aluminum-mag hydrox-simethicon 30 ML, sucralfate oral liq 1 GM PO (11:10)
--- NOTE | 2022-08-03 11:43 | ECG_ITS ---
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 Measurements Intervals [place] Rate: 82 P: 56 AR: 154 QRS: 36 QRSD: 83 T: 46 QT: 364 QTc: 428 Interpretive Statements SINUS RHYTHM POSSIBLE LEFT ATRIAL ENLARGEMENT [-0.1mV P-WAVE IN V1/V2] SEPTAL MYOCARDIAL INFARCTION , PROBABLY OLD [40+ ms Q WAVE IN V1/V2] Compared to ECG 08/03/2022 09:55:38 Myocardial infarct finding now present Electronically Signed On 08-03-2022 15:04:48 CDT by Clarence Ann M.D. [id number]
[2022-08-03 12:39] LABS: Troponin 5 2HR 6.76 ng/L (0-10); Troponin 5 2HR Delta -0.24 ABS# (0-10)
--- NOTE | 2022-08-03 12:41 | PM.HP ---
Providers/Chief Complaint Admitting Physician: Garrison Rebollar MD Primary Care Provider: Aurelio Ley DO Chief Complaint: chest pain History of Present Illness Tammy Radford is a 56 year old female presenting through the emergency department with complaints of chest pain. She reports she has had multiple episodes of chest discomfort, since Tuesday. On Tuesday she had 3 episodes, usually occurring at rest, 2 on Tuesday, 2 on Tuesday. had some nitroglycerin and she has been taking this intermittently with some relief. Pain can last 20 minutes or more. Chest discomfort typically occurs at rest, sometimes after eating. No radiation. Described as tightness. No nausea, blood in stool, black or tarry stools. No palpitations, radiation of the discomfort. Denies any previous history of coronary disease. No recent illness, fever or cough. While I am seeing her in the emergency department she comments that the GI cocktail has helped quite a bit. Was seen in the emergency department July 30, and discharged at that time for an outpatient stress test. Review of Systems General: Reports: 10 or more systems reviewed and unremarkable except in HPI and below Const: Denies: fever(s) or chills Card: Reports: chest pain; Denies: swelling of feet/ankles or orthopnea Resp: Denies: dyspnea, productive cough or non-productive cough GI: Denies: hematochezia or melena Psych: Reports: depression Medications/Allergies Home Medications Medication Instructions Recorded Confirmed Last Taken Type atorvastatin 40 mg tablet 40 mg PO BEDTIME 06/04/20 08/03/22 07/29/22 History bacillus coagulans-inulin 1 1 cap PO BID 06/04/20 08/03/22 07/29/22 History billion cell-250 mg capsule (Probiotic with Prebiotic) benztropine 2 mg tablet 2 mg PO BID PRN Headache 06/04/20 08/03/22 07/29/22 History chlorpromazine 25 mg tablet 25 mg PO Q6H PRN Headache 06/04/20 08/03/22 Unknown History cholecalciferol (vitamin D3) 25 25 mcg PO DAILY 06/04/20 08/03/22 07/29/22 History mcg (1,000 unit) chewable tablet (Vitamin D3) cyclobenzaprine 10 mg tablet 10 mg PO BID PRN Headache 06/04/20 08/03/22 06/04/20 History diphenhydramine HCl 50 mg/mL 100 mg IM BID PRN Migraine Headache 06/04/20 08/03/22 Unknown History injection solution fluticasone propionate 50 2 spray intranasal DAILY 06/04/20 08/03/22 07/29/22 History mcg/actuation nasal spray,suspension (Flonase Allergy Relief) melatonin 10 mg tablet 20 mg PO BEDTIME 06/04/20 08/03/22 07/29/22 History ondansetron HCl 8 mg tablet 8 mg PO Q8H PRN Nausea 06/04/20 08/03/22 07/29/22 History prochlorperazine maleate 10 mg 10 mg PO BID PRN Nausea 06/04/20 08/03/22 06/04/20 History tablet (Compazine) promethazine 50 mg tablet 50 mg PO TID PRN Nausea 06/04/20 08/03/22 06/04/20 History silodosin 8 mg capsule 8 mg PO QAM 11/03/20 08/03/22 07/29/22 History candesartan 8 mg tablet 8 mg PO BID 02/26/21 08/03/22 07/29/22 History potassium chloride 20 mEq 20 meq PO BID 02/26/21 08/03/22 07/29/22 History tablet,extended release(part/cryst) topiramate 100 mg tablet (Topamax) 100 mg PO BID 02/26/21 08/03/22 07/29/22 History aspirin 81 mg tablet,delayed 81 mg PO DAILY #30 tabs 07/30/22 08/03/22 Unknown Rx release diclofenac sodium 1 % topical gel 4 g topical BID PRN Pain 07/30/22 08/03/22 Unknown History doxepin 25 mg capsule 25 mg PO BEDTIME 07/30/22 08/03/22 07/29/22 History eptinezumab-jjmr 100 mg/mL See Rx Instructions .Route .COMPLEX 07/30/22 08/03/22 07/08/22 History intravenous solution (Vyepti) levothyroxine 50 mcg tablet 50 mcg PO QAM 07/30/22 08/03/22 07/30/22 History magnesium 250 mg tablet 250 mg PO DAILY 07/30/22 08/03/22 07/29/22 History mv-min-vit C 1,000 1 ea PO DAILY 07/30/22 08/03/22 07/29/22 History pf-batlnqvkx-klpsgu-herb 124 50 mg efferves tablet (Immune Support) olanzapine 10 mg tablet 10 mg PO BEDTIME PRN Headache 07/30/22 08/03/22 07/29/22 History topiramate 50 mg tablet 50 mg PO BID 07/30/22 08/03/22 07/29/22 History ubrogepant 100 mg tablet (Ubrelvy) 100 mg PO BID PRN Migraine Headache 07/30/22 08/03/22 07/29/22 History venlafaxine 100 mg tablet 100 mg PO QAM 07/30/22 08/03/22 07/29/22 History venlafaxine 50 mg tablet 50 mg PO DAILY 07/30/22 08/03/22 07/29/22 History Adrenal Stability 1 cap PO DAILY 08/03/22 08/03/22 Unknown History Curamed 1 tab PO BID 08/03/22 08/03/22 Unknown History Iron Patch 1 patch topical BEDTIME 08/03/22 08/03/22 Unknown History Multivitamin Patch 1 patch topical BEDTIME 08/03/22 08/03/22 Unknown History ascorbic acid (vitamin C) 1,000 mg 1,000 mg PO DAILY 08/03/22 08/03/22 Unknown History tablet (Vitamin C) chlorzoxazone 500 mg tablet 500 mg PO Q6H PRN UNKNOWN 08/03/22 08/03/22 Unknown History clonazepam 2 mg tablet 2 mg PO BEDTIME 08/03/22 08/03/22 Unknown History dihydroergotamine 0.5 mg/pump act. See Rx Instructions .Route .COMPLEX 08/03/22 08/03/22 Unknown History (4 mg/mL) nasal spray glucosamine sulfate 500 mg tablet 500 mg PO BID 08/03/22 08/03/22 Unknown History (Glucosamine) levetiracetam 500 mg tablet 250 mg PO BID 08/03/22 08/03/22 Unknown History lisdexamfetamine 30 mg chewable 30 mg PO QAM 08/03/22 08/03/22 Unknown History tablet (Vyvanse) memantine 10 mg tablet 10 mg PO BID 08/03/22 08/03/22 Unknown History omega-3 fatty acids 1,000 mg 1,000 mg PO DAILY 08/03/22 08/03/22 Unknown History capsule ondansetron 8 mg disintegrating 8 mg PO Q8H PRN Nausea And Vomiting 08/03/22 08/03/22 Unknown History tablet prasterone (dhea) 25 mg capsule 25 mg PO BID 08/03/22 08/03/22 Unknown History (DHEA) rimegepant 75 mg disintegrating 75 mg PO EVERY OTHER DAY 08/03/22 08/03/22 08/01/22 History tablet (Nurtec ODT) simethicone 125 mg capsule (Gas-X 125 mg PO BID 08/03/22 08/03/22 Unknown History Extra Strength) tizanidine 4 mg tablet 8 mg PO BEDTIME 08/03/22 08/03/22 Unknown History Allergies Allergy/AdvReac Type Severity Reaction Status Date / Time NSAIDS (Non-Steroidal Allergy D/T Verified 08/03/22 09:55 Anti-Inflamma GASTRIC SLEEVE dexamethasone AdvReac GASTRIC Verified 08/03/22 09:55 SLEEVE, IV IS FINE hydrocodone AdvReac ITCHING Verified 08/03/22 09:55 nebivolol [From Bystolic] AdvReac SWELLING Verified 08/03/22 09:55 Sulfa (Sulfonamide AdvReac RASH Verified 08/03/22 09:55 Antibiotics) PFSH Acute PFSH: Medical History (Updated 08/03/22 @ 12:56 by Garrison Rebollar MD) Essential hypertension Fibromyalgia Hyperlipidemia Hypothyroidism Migraine Surgical History (Updated 08/03/22 @ 12:44 by Garrison Rebollar MD) History of hysterectomy History of neck surgery S/P gastric surgery LAP GASTRIC SLEEVE Family History Mother Cancer RECTAL Father Graves disease Sister Migraines Grandmother Migraines Diabetes Hypertension Brother Hypertension Grandfather Dementia Social History Smoking and tobacco status: never smoked Alcohol intake: never Caregiver/support person: Yes Lives independently: Yes Vitals/I&O/Wt Last Vital Signs Temp 97.9 F 08/03/22 09:43 Pulse 80 08/03/22 11:30 Resp 16 08/03/22 11:30 BP 102/54 08/03/22 11:30 Pulse Ox 97 08/03/22 11:30 O2 Del Method Room Air 08/03/22 09:43 Weight last 48 hrs Weight 65.771 kg Physical Exam Narrative: General exam is no apparent distress Neck is supple no lymphadenopathy thyromegaly Cardiovascular regular rate and rhythm without murmur, no S3 or S4 Lungs clear no wheezing or crackles Abdomen is soft, positive bowel sounds. No obvious organomegaly exam deferred Extremities no cyanosis clubbing or edema, cap refill brisk Skin no rash Neuro no obvious focal deficits Data 08/03/22 09:50 08/03/22 09:50 Other Labs: LFTs are normal Troponin is 7, repeat 6.7 Chest x-ray which I reviewed demonstrates no obvious infiltrate, normal cardiac silhouette, previous cervical surgery by my read EKG demonstrates normal sinus rhythm, normal axis, no acute changes, possible left atrial enlargement but biphasic P wave in V1 A&P Assessment and plan (1) Chest pain: Patient presents with chest pain. This is atypical. She has had 2 ER visits now with recurrent pain. Stress test has been scheduled for an outpatient, but with observation we will move to inpatient stress testing. Check TSH Concern this may also potentially come from a gastric/esophageal cause. She believes food may relate to some generation of the pain. Avoid all anti-inflammatories. Initiation of Protonix twice daily. Note that she has history of gastric sleeve surgery Serial troponins Check echocardiogram Nuclear stress test tomorrow morning CBC, BMP in the morning (2) Migraine: Continue many of her prophylactic medications (3) Hypothyroidism: Check TSH (4) Essential hypertension: Continue candesartan Monitor blood pressure BMP in the morning Plan History of hyperlipidemia, continue statin Full code Lovenox for DVT prophylaxis Attestations Medical Necessity Statement*: Will require less than 2 midnight stay for evaluation and treatment of chest discomfort Diagnoses Chest pain R07.9 Migraine G43.909 Hypothyroidism E03.9 Essential hypertension I10 Time Spent (min) 49
--- NOTE | 2022-08-03 12:44 | PC.PHAR ---
PT STATES SHE TAKES CARE OF HER OWN MEDICATIONS-EXT SHOWS LAST FILLED EFFEXOR ER 150MG DAILY 07/20/22 90D/S PT STATES SHE ONLY TAKES THE PLAIN EFFEXOR 100MG AND 50MG TABS DAILY STATES SHE HAS TO CRUSH THE TABS EXT SHOWS TABS LAST FILLED 07/18/22 7D/S-PT STATES SHE GOT HER LAST VYEPTI ON 07/08/22-NOTES ARE MADE IN THE PHARMACY COMMENTS
--- NOTE | 2022-08-03 12:47 | USCV_ITS ---
Tammy Radford Age: 56 Gender: F : 1965 Exam Date: 08/03/2022 14:32 Ordering Phys: Garrison Rebollar MD Technologist: Rene Ricks Exam Location: [facility] [place] Indication: chest pain BP: 145 / 74 HR: 78 Rhythm: Sinus Technical Quality: Adequate MEASUREMENTS (Male / Female) Normal Values 2D ECHO LV Diastolic Diameter PLAX 4.3 cm 4.2 - 5.9 / 3.9 - 5.3 cm LV Systolic Diameter PLAX 2.6 cm IVS Diastolic Thickness 1.0 cm 0.6 - 1.0 / 0.6 - 0.9 cm IVS Systolic Thickness 1.4 cm LVPW Diastolic Thickness 1.2 cm 0.6 - 1.0 / 0.6 - 0.9 cm LVPW Systolic Thickness 1.3 cm LVOT Diameter 2.0 cm LV Ejection Fraction 2D Teich 67.1 % LV Ejection Fraction MOD 2C 82.2 % LV Ejection Fraction 2C AL 82.0 % LA Diameter 4.3 cm IVC Diameter 1.9 cm M-MODE Aortic Annulus Diameter 3.8 cm LA Ao Ratio MM 1.3 MV E Point Septal Separation 0.6 cm DOPPLER AV Peak Velocity 147.0 cm/s LVOT Peak Velocity 107.0 cm/s AV Area Cont Eq vti 2.1 cm squared AV Area Cont Eq pk 2.4 cm squared MV Area PHT 5.0 cm squared Mitral E to A Ratio 1.3 MV E' Velocity 52.0 cm/s Mitral E to MV E' Ratio 7.8 Mitral E to LV E' Lateral Ratio 6.5 Mitral E to LV E' Septal Ratio 9.9 TR Peak Velocity 257.3 cm/s TR Peak Gradient 26.5 mmHg TV Peak E Velocity 105.0 cm/s Right Atrial Pressure 3.0 mmHg Pulmonary Artery Systolic Pressu 29.5 mmHg FINDINGS Left Ventricle Normal left ventricular size, systolic function and wall thickness, with no regional wall motion abnormalities. Grade I/IV diastolic dysfunction (abnormal relaxation filling pattern), normal to mildly elevated filling pressures left ventricular ejection fraction is estimated at 65 %. Right Ventricle Normal right ventricular size and systolic function. Normal right ventricular systolic pressure. Right Atrium The right atrium is normal in size. Left Atrium The left atrium is normal in size. Mitral Valve Structurally normal mitral valve without significant stenosis or prolapse. There is no mitral regurgitation. Aortic Valve Structurally normal aortic valve without significant sclerosis or stenosis. There is no aortic regurgitation. Tricuspid Valve Structurally normal tricuspid valve without significant stenosis or regurgitation. Pulmonary artery systolic pressure is normal. Pulmonic Valve Pulmonic valve not well visualized. Pericardium Normal pericardium without effusion. Aorta Normal ascending aorta dimension. IVC The inferior vena cava appears normal. CONCLUSIONS Normal left ventricular size, systolic function and wall thickness, with no regional wall motion abnormalities. Grade I/IV diastolic dysfunction (abnormal relaxation filling pattern), normal to mildly elevated filling pressures left ventricular ejection fraction is estimated at 65 %. There are no prior echocardiogram studies to compare. Dr. Stalin Nath MD (Electronically Signed) Final Date: 03 August 2022 16:35 S
--- NOTE | 2022-08-03 12:53 | ECG_ITS ---
[facility] Test Date: 2022-08-04 Pat Name: Tammy Radford Department: Room: 102 Gender: Female [employer]: : 1965 Requested By: Garrison Dias Order Number: [id number] Rod MD: Clarence Ann M.D. Interpretive Statements NAME OF STUDY: LEXISCAN SESTAMIBI STRESS TEST INDICATION: [Chest Pain, ] Procedure: At the baseline, the blood pressure was 111/76 mmHg with a heart rate of 86 bpm. The electrocardiogram showed normal sinus rhythm, normal axis with normal ST and T's. The Lexiscan was infused over a period of 20 seconds. A total of 0.4 mg of Lexiscan was infused. The stress phase was continued for a total of 5 minutes. Heart rate was at the end of stress phase was 86 bpm and a blood pressure of 120/73 mmHg. The EKG at the peak infusion revealed normal sinus rhythm with no significant ST-T wave changes. Sestamibi was injected 20 seconds after the Lexiscan infusion. Blood pressure at the end of recovery phase was 125/76 mmHg with a heart rate of 89 bpm. Conclusion: 1. Normal EKG response to Lexiscan infusion 2. No Lexiscan induced chest pain or cardiac arrhythmia. 3. Normal blood pressure and heart rate response. 4. Sestamibi/sestamibi perfusion scan pending; see separate report. Electronically Signed On 08-23-2022 10:37:58 CDT by Clarence Ann M.D. [email or web address]
[2022-08-03 13:44] LABS: Thyroid Stimulating Hormone 0.49 uIU/mL (0.27-4.20)
[2022-08-03] MEDS: enoxaparin 40 mg/0.4 mL Syringe SUBCUT (14:59)
[2022-08-03] MEDS: benztropine 1 mg Tablet 2 MG PO ×2 (15:41→23:46)
[2022-08-03] MEDS: chlorPROMazine 25 mg Tablet PO ×2 (15:43→21:24)
[2022-08-03] MEDS: ondansetron 2 mg/ML SDV 2 mL 4 MG IVP (16:29)
[2022-08-03 16:32] LABS: Troponin 5 6HR Delta -1 ng/L (0-12)
[2022-08-03] MEDS: topiramate 100 mg Tablet PO (17:36)
[2022-08-03] MEDS: memantine 5 mg tablet 10 MG PO (17:37)
[2022-08-03] MEDS: levETIRAcetam 500 mg Tablet 250 MG PO (17:37)
[2022-08-03] MEDS: topiramate 25 mg Tablet 50 MG PO (17:38)
[2022-08-03] MEDS: losartan 50 mg Tablet PO (17:39)
[2022-08-03] MEDS: pantoprazole DR 40 mg Tablet PO (17:41)
[2022-08-03] MEDS: CLONazepam 1 mg Tablet 2 MG PO (21:24)
[2022-08-03] MEDS: atorvastatin 40 mg Tablet PO (21:24)
[2022-08-03] MEDS: doxepin 25 mg Capsule PO (21:24)
[2022-08-03] MEDS: tizanidine 4 mg Tablet 8 MG PO (21:24)
[2022-08-04] VITALS (28 sets, daily range): BP systolic 64–146; BP diastolic 36–95; PULSE 56–93; RESP 16–18; TEMP 36.7–37.1; O2SAT 92–100
--- NOTE | 2022-08-04 00:10 | PC.NURSE ---
Addendum entered by Casie Monzon RN 08/04/22 00:37: Received instruction from Dr Velasquez to monitor for now. Original Note: This patient has decreased BP to all four limbs. Highest being 81/49 to left lower leg. BP checked manually as well with similar results. Patient denies any symptoms at this time. Patient does take several meds at night for migraine control.. Informed Dr Velasquez. No orders presently.
[2022-08-04] MEDS: morphine 4 mg/mL SDV 1 mL 2 MG IVP (01:24)
[2022-08-04] MEDS: TRAMadol 50 mg Tablet PO (02:53)
[2022-08-04] MEDS: chlorPROMazine 25 mg Tablet PO (03:33)
[2022-08-04] MEDS: levothyroxine 50 mcg Tablet PO (05:22)
--- NOTE | 2022-08-04 06:08 | NMCV_ITS ---
NM patricia perf SPECT r/s* [id number] Tammy Radford Age: 56 Gender: F : 1965 Exam Date: 08/04/2022 07:05 Ordering Phys: Garrison Rebollar MD Technologist: STANTON Jung Exam Location: [facility] Indications: CHEST PAIN STRESS TEST Please see separate stress test report in [facility] for full findings IMAGE PROTOCOL Rest/Stress 1 Lexiscan Day Radiopharmaceutical Dose (mCi) Administration Site Administered by Rest: Tc-99m 10.8 IV STANTON Bui Sestamibi Stress:Tc-99m 32.6 IV STANTON Bui Sestamibi Rest: 04-Aug-2022 60 Discovery 630 Stress: 04-Aug-2022 30 Discovery 630 0.4mg Lexiscan. Images obtained in supine and prone position. SPECT RESULTS Technical Quality: Excellent Raw Data Analysis: Normal Image Corrections: No attenuation or motion correction applied Summed Stress Score: 0 Summed Rest Score: 0 Summed Difference Score: 0 PERFUSION FINDINGS SPECT images demonstrate homogeneous tracer distribution throughout the myocardium. FUNCTIONAL RESULTS (calculated via Gated SPECT) Stress Image LV EF (%): 88 Stress EDV (mL):92 TID: 1 Stress ESV (mL):11 FUNCTIONAL FINDINGS: There is normal left ventricular systolic function. IMPRESSIONS 1. Normal myocardial perfusion imaging with no evidence of ischemia 2. LV systolic function is normal Clarence Ann MD (Electronically Signed) Final Date: 04 August 2022 11:09 S
[2022-08-04] MEDS: regadenoson 0.4 Mg/5 ml Syringe IVP (07:21)
[2022-08-04] MEDS: topiramate 100 mg Tablet PO (09:38)
[2022-08-04] MEDS: losartan 50 mg Tablet PO (09:38)
[2022-08-04] MEDS: aspirin 81 mg EC Tablet PO (09:38)
[2022-08-04] MEDS: memantine 5 mg tablet 10 MG PO (09:38)
[2022-08-04] MEDS: levETIRAcetam 500 mg Tablet 250 MG PO (09:38)
[2022-08-04] MEDS: topiramate 25 mg Tablet 50 MG PO (09:38)
[2022-08-04] MEDS: pantoprazole DR 40 mg Tablet PO (09:38)
--- NOTE | 2022-08-04 09:39 | PC.NURSE ---
None of the medications are scanned because I have a computer with no scanner. Name and and allergies verified.
--- NOTE | 2022-08-04 11:42 | PM.DCS ---
Discharge Providers Date of Admission: 08/03/22 13:03 Date of Discharge: August 04, 2022 Attending Provider at Admission: Garrison Rebollar MD Attending Provider at Discharge: Garrison Rebollar MD Primary Care Provider: Aurelio Ley DO Diagnoses at Discharge Discharge Diagnosis (1) Chest pain: Status: Acute (2) Migraine: Status: Acute (3) Hypothyroidism: Status: Acute (4) Essential hypertension: Status: Acute Reason for Visit Reason for Visit: chest pain Hospital Course Hospital Course Patient is a 56-year-old white female who presented to the hospital with somewhat atypical chest discomfort. Troponins were negative. EKG did not demonstrate any concerning changes. She was placed in the hospital, and monitored closely. Serial troponins were performed which were all negative. Echocardiogram was performed which demonstrated preserved EF, 1/4 diastolic dysfunction. Some of her symptoms were related to food, so she was placed on Protonix 40 mg twice daily. She had no recurrent chest discomfort while in the hospital. A nuclear stress test was performed which demonstrated no reversible ischemia. It was thought she could discharge home, with close follow-up with her primary care provider. She was given an opportunity to ask questions, and agreed with the above plan. Physical Exam Narrative: General exam no distress Neck is supple Cardiovascular regular rate and rhythm Lungs clear Abdomen is soft, positive bowel sounds Extremities no sinus clubbing edema Discharge Data Studies Completed and Pending Completed Studies During Hospitalization Category Date Time Status Sestamibi Stress Test Request Routine Exams 08/03/22 12:53 Draft XR chest 1V portable [id number] Stat Exams 08/03/22 09:42 Completed NM mibi stress rest [NM patricia perf SPECT r/s* [id number]] Nuc Med 08/04/22 06:08 Completed Routine CV. echo complete* [id number] Routine Ultrasound 08/03/22 12:47 Completed Radiology Impressions Chest X-Ray 08/03/22 09:42 Impression: Negative chest. Laboratory Results WBC 7.3 10^3/uL (4.0-10.0) 08/03/22 09:50 RBC 4.24 10^6/uL (4.1-5.3) 08/03/22 09:50 Hgb 12.6 g/dL (11.5-15.3) 08/03/22 09:50 Hct 40.1 % (37.0-47.0) 08/03/22 09:50 MCV 94.6 fl (81-99) 08/03/22 09:50 MCH 29.7 pg (28.0-34.0) 08/03/22 09:50 MCHC 31.4 g/dL (30.0-36.0) 08/03/22 09:50 RDW 13.6 % (12.1-15.1) 08/03/22 09:50 Plt Count 282 10^3/cmm (130-400) 08/03/22 09:50 MPV 10.3 fL (7.4-10.4) 08/03/22 09:50 Neut % (Auto) 62.1 % 08/03/22 09:50 Lymph % (Auto) 29.4 % 08/03/22 09:50 [place] % (Auto) 5.9 % 08/03/22 09:50 Eos % (Auto) 1.4 % 08/03/22 09:50 Baso % (Auto) 0.7 % 08/03/22 09:50 Neut # (Auto) 4.55 10^3/uL (1.8-7.7) 08/03/22 09:50 Lymph # (Auto) 2.2 10^3/uL (0.8-4.8) 08/03/22 09:50 [place] # (Auto) 0.4 10^3/uL (0.2-0.9) 08/03/22 09:50 Eos # (Auto) 0.1 10^3/uL (0.0-0.8) 08/03/22 09:50 Baso # (Auto) 0.1 10^3/uL (0.0-0.1) 08/03/22 09:50 Nucleated RBC % (auto) 0 % 08/03/22 09:50 Nucleated RBCs # 0.0 /100WBC 08/03/22 09:50 Sodium 140 mmol/L (136-145) 08/03/22 09:50 Potassium 3.7 mmol/L (3.5-5.1) 08/03/22 09:50 Chloride 108 mmol/L (98-107) H 08/03/22 09:50 Carbon Dioxide 23 mmol/L (22-29) 08/03/22 09:50 Anion Gap 12.7 (5-19) 08/03/22 09:50 BUN 13 mg/dL (6-20) 08/03/22 09:50 Creatinine 0.7 mg/dL (0.5-0.9) 08/03/22 09:50 GFR Calculation 85.9 mL/min (90-130) L 08/03/22 09:50 Glucose 81 mg/dL (65-115) 08/03/22 09:50 Calculated Osmolality 289 mOsm/kg (285-295) 08/03/22 09:50 Calcium 8.8 mg/dL (8.5-10.5) 08/03/22 09:50 Total Bilirubin 0.2 mg/dL (0.15-1.2) 08/03/22 09:50 AST 16 U/L (0-32) 08/03/22 09:50 ALT 12 U/L (0-33) 08/03/22 09:50 Alkaline Phosphatase 71 U/L (35-105) 08/03/22 09:50 Troponin T Baseline 7 ng/L (0-10) 08/03/22 09:50 Troponin T 120 Minute 6.76 ng/L (0-10) 08/03/22 12:00 Delta Troponin T -0.24 ABS# (0-10) L 08/03/22 12:00 Troponin T Hi Sens 6Hr 6.00 ng/L (0-10) 08/03/22 15:50 Troponin T Hi Sens 6Hr Delta -1 ng/L (0-12) L 08/03/22 15:50 Total Protein 6.5 g/dL (6.6-8.7) L 08/03/22 09:50 Albumin 4.3 g/dL (3.5-5.2) 08/03/22 09:50 Globulin 2.2 g/dL (1.3-4.6) 08/03/22 09:50 TSH 0.49 uIU/mL (0.27-4.20) 08/03/22 09:44 Vitals Last Vital Signs Temp 98.0 F 08/04/22 08:00 Pulse 77 08/04/22 08:00 Resp 18 08/04/22 08:00 BP 140/79 08/04/22 09:38 Pulse Ox 100 08/04/22 08:00 O2 Del Method Room Air 08/04/22 08:00 Discharge Plan Discharge Patient Disposition: Home Condition: Stable Prescriptions: New pantoprazole 40 mg Tablet,Delayed Release (Dr/Ec) 40 mg PO BID Qty: 60 0RF Continued topiramate [Topamax] 100 mg tablet 100 mg PO BID Rx Instructions: TAKES WITH 50MG TAB BID TO =150MG silodosin 8 mg capsule 8 mg PO QAM Rx Instructions: must administer with a meal/food cyclobenzaprine 10 mg Tablet 10 mg PO BID PRN (Reason: Headache) atorvastatin 40 mg Tablet 40 mg PO BEDTIME diphenhydramine HCl [Benadryl] 50 mg/mL Solution 100 mg IM BID PRN (Reason: Migraine Headache) chlorpromazine 25 mg Tablet 25 mg PO Q6H PRN (Reason: Headache) benztropine 2 mg Tablet 2 mg PO BID PRN (Reason: Headache) fluticasone propionate [Flonase Allergy Relief] 50 mcg/actuation [place],Suspension 2 spray INTRANASAL DAILY melatonin 10 mg Tablet 20 mg PO BEDTIME ondansetron HCl [Zofran] 8 mg Tablet 8 mg PO Q8H PRN (Reason: Nausea) prochlorperazine maleate [Compazine] 10 mg Tablet 10 mg PO BID PRN (Reason: Nausea) Rx Instructions: take with benadryl injections promethazine [Phenergan] 50 mg Tablet 50 mg PO TID PRN (Reason: Nausea) cholecalciferol (vitamin D3) [Vitamin D3] 25 mcg (1,000 unit) Tablet,Chewable 25 mcg PO DAILY candesartan 8 mg tablet 8 mg PO BID potassium chloride 20 mEq tablet,ER particles/crystals 20 meq PO BID Vitamin C 1,000 mg Tablet 1,000 mg PO DAILY dihydroergotamine 0.5 mg/pump act. (4 mg/mL) spray,non-aerosol See Rx Instructions .ROUTE .COMPLEX Rx Instructions: USE 1 SPRAY IN EACH NOSTRIL AT ONSET OF MIGRAINE. REPEAT IN 15 MINUTES. MAX 2 DAYS PER WEEK tizanidine 4 mg tablet 8 mg PO BEDTIME levetiracetam 500 mg tablet 250 mg PO BID ondansetron 8 mg tablet,disintegrating 8 mg PO Q8H PRN (Reason: Nausea And Vomiting) clonazepam 2 mg tablet 2 mg PO BEDTIME memantine 10 mg tablet 10 mg PO BID Nurtec ODT 75 mg tablet,disintegrating 75 mg PO EVERY OTHER DAY DHEA 25 mg Capsule 25 mg PO BID Glucosamine 500 mg Tablet 500 mg PO BID Rx Instructions: administer with meals venlafaxine 100 mg tablet 100 mg PO QAM Rx Instructions: TAKES WITH 50MG TO =150MG venlafaxine 50 mg tablet 50 mg PO DAILY Rx Instructions: TAKES WITH 100MG TAB TO =150MG magnesium 250 mg Tablet 250 mg PO DAILY topiramate 50 mg tablet 50 mg PO BID Rx Instructions: TAKES WITH 100MG TAB BID TO =150MG diclofenac sodium [Voltaren] 1 % Gel 4 g TOPICAL BID PRN (Reason: Pain) Rx Instructions: apply to single elbow, wrist or hand; for hand includes palm/fingers/back of hand doxepin 25 mg capsule 25 mg PO BEDTIME olanzapine 10 mg tablet 10 mg PO BEDTIME PRN (Reason: Headache) levothyroxine 50 mcg tablet 50 mcg PO QAM Ubrelvy 100 mg tablet 100 mg PO BID PRN (Reason: Migraine Headache) Vyepti 100 mg/mL Solution See Rx Instructions .ROUTE .COMPLEX Rx Instructions: as directed every three months aspirin 81 mg tablet,delayed release (DR/EC) 81 mg PO DAILY Qty: 30 0RF Discontinued Probiotic with Prebiotic 1 billion-250 cell-mg Capsule 1 cap PO BID Iron Patch 1 patch topical BEDTIME Multivitamin Patch 1 patch topical BEDTIME Adrenal Stability 1 cap PO DAILY Fish Oil Concentrate 1,000 mg Capsule 1,000 mg PO DAILY chlorzoxazone 500 mg tablet 500 mg PO Q6H PRN (Reason: UNKNOWN) Gas-X Extra Strength 125 mg Capsule 125 mg PO BID Vyvanse 30 mg tablet,chewable 30 mg PO QAM Curamed 1 tab PO BID Immune Support 1,000-50 mg Tablet, Effervescent 1 ea PO DAILY Discharge Orders: Discharge Order (Routine); Ordered 08/04/22 Ordered By: Garrison Rebollar Referrals: Aurelio Ley DO [Primary Care Provider] - 4-7 days Patient Instructions: Opioid Safety Activity Restrictions/Additional Instructions: Take all medicine as prescribed Follow-up with primary care provider 5 to 7 days Discussed with them whether an EGD would be warranted No anti-inflammatories. Reduce caffeine. Patient's Health Concerns: Chest pain Assessment: Chest pain likely noncardiac. Nuclear stress test negative Plan of Treatment: Protonix 40 mg twice daily, follow-up with primary care provider Goals: No recurrent chest pain. Discharge Attestations Time Spent in Discharge Care*: greater than 30 min Quality Metrics Clinical Quality Measures [ No reported AMI, CVA or VTE this stay] Coding Level of Care Code 62702 Total time (in minutes) for Discharge: 37 Diagnoses Chest pain R07.9 Migraine G43.909 Hypothyroidism E03.9 Essential hypertension I10
== END 2022-08-04 12:35 | disposition home or self-care (01) ==
LOC: ER 12:09 → CSU 15:07
PROVIDERS: Admitting Provider Internal Medicine; Emergency Provider Family Medicine; PCP Internal Medicine; Visit Provider Internal Medicine
DX: R07.9 Chest pain, unspecified (principal); I10 Essential (primary) hypertension; E03.9 Hypothyroidism, unspecified; G43.909 Migraine, unspecified, not intractable, without status migrainosus; Z79.82 Long term (current) use of aspirin; Z79.899 Other long term (current) drug therapy; Z88.2 Allergy status to sulfonamides
CPT/HCPCS: 36415; 71045; 78452; 80053; 84443; 84484; 85025; 93005; 93017; 93306; 96361; 96372; 96374; 96375; 96376; 99285; A9500; G0378; J1650; J2270; J2405; J2785; J7030; Q0161

== ENCOUNTER 2022-10-27 12:00 | Outpatient (CLI) | payer OTHER, MEDICARE, SELFPAY | END 2022-10-27 12:01 | disposition home or self-care (01) | LOC: SLEEP 10-28 14:53 | PROVIDERS: PCP Internal Medicine | DX: G47.33 Obstructive sleep apnea (adult) (pediatric) (principal); R63.4 Abnormal weight loss | CPT/HCPCS: G0399 ==

== ENCOUNTER 2023-04-13 09:34 | Oncology outpatient (recurring) (ONCR) | payer OTHER, MEDICARE, SELFPAY ==
[2023-04-13 09:30] VITALS: BP 147/79; PULSE 95; RESP 16; TEMP 37.3; O2SAT 92
[2023-04-13] MEDS: sodium chloride 0.9% 250 ML 75 ML IV (10:12)
[2023-04-13] MEDS: eptinezumab-jjmr 300 MG in sodium chloride 0.9% (100 ml) 100 ML 206 MG IV (10:46)
--- NOTE | 2023-04-13 11:19 | PC.NURSE ---
Infusion 04/13/23 Patient scheduled today for infusion of Vyepti. Patient stated that Vyepti dose should be 300 mg, and that she discussed this with Dr. Olsen. Written order from Dr. Olsen stated that patient's dose is 100 mg. This nurse called Dr. Olsen to clarify order. Dr. Olsen confirmed that the patient's dose should be 300 mg and gave verbal order to administer Vyepti infusion at 300 mg dose. Patient verbalized understanding.
[2023-04-13 12:13] VITALS: BP 144/79; PULSE 91; RESP 16; TEMP 37.1; O2SAT 96
== END 2023-04-17 23:59 | disposition home or self-care (01) ==
PROVIDERS: PCP Internal Medicine; Visit Provider Internal Medicine
DX: G43.711 Chronic migraine without aura, intractable, with status migrainosus (principal); Z53.9 Procedure and treatment not carried out, unspecified reason
CPT/HCPCS: 96365; J3032; J7050

== ENCOUNTER 2023-07-15 10:10 | Oncology outpatient (recurring) (ONCR) | payer OTHER, MEDICARE, SELFPAY ==
[2023-07-15 10:53] VITALS: BP 107/69; PULSE 103; RESP 18; TEMP 37.4; O2SAT 99
[2023-07-15] MEDS: eptinezumab-jjmr 300 MG in sodium chloride 0.9% (100 ml) 100 ML 206 MG IV (11:20)
[2023-07-15 11:57] VITALS: BP 115/74; PULSE 89; RESP 16; TEMP 36.8; O2SAT 95
== END 2023-07-17 23:59 | disposition home or self-care (01) ==
PROVIDERS: PCP Internal Medicine; Visit Provider Specialist
DX: G43.711 Chronic migraine without aura, intractable, with status migrainosus (principal)
CPT/HCPCS: 96413; J3032

== ENCOUNTER 2023-10-07 10:16 | Oncology outpatient (recurring) (ONCR) | payer OTHER, MEDICARE, SELFPAY ==
--- OUTSIDE RECORDS SUMMARY | 2023-10-07 10:20 | XMS_ITS ---
Author Name Porter Haas Address [address] [place], [place] [id number] [facility] Address [address] [place], [place] [id number] Care Team Providers Care Advisor Advocate Angel [employer] Founder Name Role Phone Porter Haas Primary Care Physician Unavailab le Porter Haas Preferred Provider Unavailable Allergies and Adverse Reactions Name Reaction Notes Morphine Sulfate SULFA (SULFONAMIDES) hydrocodone-acetaminophen Bystolic Plan of Treatment Planned Activity Comments Planned Date Planned Time Plan /Goal INSULIN - SERUM 10/13/2022 12:00 AM Vitamin D 10/13/2022 12:00 AM Medications Active Name Start Date Estimated Completion Date SIG Comments biotin 10,000 mcg oral capsule once a day clonazepam 2 mg oral tablet 1 every bedtime lidocaine 5 % topical adhesive patch,medicated as needed promethazine 25 mg oral tablet as needed Voltaren 1 % topical gel as needed potassium chloride 20 mEq oral tablet extended release 1 twice a day Zofran ODT 8 mg oral tablet,disintegrating as needed Migranal 0.5 mg/pump act. (4 mg/mL) nasal spray,non-aerosol as needed magnesium 500 mg oral once a day Glucosamine 500 mg oral tablet take 3 tablets by or al route daily Effexor XR 150 mg oral capsule,extended release 24hr 05/21/2019 take 1 capsule by or al route daily Benadryl 50 mg /ml injection inject 100mg q12hrs prn Compazine 10 mg oral tablet take 1 tablet by ora l route As needed Cogentin 2 mg prn orphenadrine citrate 100 mg oral tablet extended release take 1 tablet by ora l route once a day (at bedtime) melatonin 10 mg oral tablet take 1 tablet by ora l route once a day (at bedtime) Probiotic 1 -250 billion oral bid Lipitor 40 mg oral tablet take 1 tablet (40 mg ) by oral route once daily Zofran 8 mg disentigrating oral tablet prn Vitamin D3 125 mcg (5,000 unit) oral tablet take 1 tablet b y oral route daily Vyepti 100 mg/mL intravenous solution infuse 300 mg over approximately 30 minute(s) by intravenous route every 3 months zinc 50 mg oral tablet take 1 tablet by oral route daily Vitamin C 500 mg oral tablet take 1 tablet by ora l route daily Curamed oral as needed silodosin 8 mg oral capsule take 1 capsule (8 mg ) by oral route once daily with a meal Vitamin B-12 250 mcg oral tablet take 1 tablet by ora l route daily multivitamin with iron oral tablet take 1 tablet by ora l route daily Flonase Allergy Relief 50 mcg/actuation nasal spray,suspension spray 1 spray (50 mc g) in each nostril by intranasal route once daily cyclobenzaprine 10 mg tablet take 1 tablet (10 mg ) by oral route once daily Estrogen/Progesterone/Te stosterone pellet q3mo Vyvanse 30 mg chewable tablet chew 1 tablet (30 mg ) by oral route once daily in the morning doxepin 10 mg capsule take 1 capsule by oral route daily levothyroxine 50 mcg tablet 10/15/2022 10/10/2023 take 1 tablet (50 mc g) by oral route once daily for 90 days Name Start Date Expiration Date SIG Comments tizanidine 4 mg oral tablet 03/21/2017 04/20/2017 2 tablet s at bedtime Vitamin D3 50 ,000 unit table oral 03/21/2017 04/20/2017 as directed 3 days a week metformin 750 mg oral tablet extended release 24 hr 05/24/2019 05/18/2020 take 2 tablets (1,50 0 mg) with or after supper Estrogen/Progesterone Progesterone pellets every 2 months. candesartan 8 mg tablet 10/13/2022 10/14/2022 take 1 tablet by oral route 2 times a day for 1 day hydroxyzine HCl 10 mg tablet 10/13/2022 10/14/2022 take 1 tablet by ora l route As needed for 1 day Keppra 250 mg tablet 10/13/2022 10/14/2022 take 1 tablet by oral route 2 times a day for 1 day Ubrelvy 50 mg tablet 10/13/2022 10/14/2022 take 1 tablet by oral route every other day for 1 day Discontinued Name Start Date Discontinued Date SIG Comment s Mila Allergy 180 mg oral tablet 10/06/2020 take 1 tablet (180 m g) by oral route once daily butorphanol tartrate 10 mg/mL nasal spray,non-aerosol 04/19/2019 as needed famotidine 40 mg oral tablet 03/21/2017 take 1 tablet (40 mg ) by oral route once daily at bedtime hydrocodone-acetaminophen 5-325 mg oral tablet 04/19/2019 as needed lamotrigine 200 mg oral tablet 04/19/2019 take 1 tablet (200 m g) by oral route once daily topiramate 200 mg oral tablet 03/21/2017 take 1 tablet (200 m g) by oral route Vitamin D3 5,000 unit oral tablet 03/21/2017 once a day tamsulosin 0.4 mg oral capsule,extended release 24hr 03/21/2017 once a day Pristiq 50 mg oral tablet extended release 24 hr 03/21/2017 take 1 tablet (50 mg) by oral route once daily for 30 days Prilosec OTC 40 mg oral tablet,delayed release (DR/EC) 10/06/2020 once a day doxepin 25 mg oral capsule 05/19/2019 take 1 capsule (25 m g) by oral route once daily at bedtime fenofibrate 160 mg oral tablet 05/19/2019 take 1 tablet (160 m g) by oral route once daily Haidol 2 mg oral solution 05/19/2019 as needed sumatriptan succinate 6 mg/0.5 mL subcutaneous solution 05/19/2019 as needed B12 Complex oral 05/19/2019 once a day Thorazine 25 mg 10/06/2020 prn Ambien 10 mg oral tablet 10/13/2022 bambi e 1 tablet (10 mg) by oral route once daily at bedtime Aimovig Autoinjector 140 mg/mL subcutaneous auto-injector 10/06/2020 inject 140 mg by subcutaneous route once a month in the abdomen, thigh, or outer area of upper arm Decadron 0.75 mg oral tablet 10/06/2020 take 1 tablet by ora l route As needed Nitrostat 0.4 mg sublingual tablet, sublingual 10/13/2022 place 1 tablet (0.4 mg) by buccal route at the first sign of an attack; no more than 3 tabs are recommended within a 15 minute period. clonidine HCl 0.1 mg oral tablet 10/06/2020 take 1 tablet by ora l route As needed METFORMIN ER 750MG 24HR TABS 05/29/2020 10/06/2020 TAKE 2 TABLETS BY MOUTH WITH OR AFTER SUPPER Adderall 30 mg tablet 10/07/2021 10/13/2022 take 1 tablet (30 mg) by oral route once daily before breakfast for 1 day levetiracetam 250 mg tablet 10/07/2021 take 2 tablets (500 mg) by oral route 2 times per day prochlorperazine Edisylate 10 mg/2 mL (5 mg/mL) injection solution 10/13/2022 inject 1 kiko liter (5 mg) deeply into the upper outer quadrant of the buttock by intramuscular route every 4 hours finasteride oral tablet 1 mg 12/29/2021 10/13/2022 one daily Problem List Description Status Onset Chronic fatigue syndrome Active 016 Cervical spondylolysis Active 6 Chronic pain syndrome Active 10/09/2015 Essential Hypertension Active 6 Migraine headache Active 10/09/2015 Nontoxic multinodular goiter Active Obesity Active 10/09/2015 GEENA treated with BiPAP Active 05/21/2019 Bariatric surgery status Active 11/2019 Vital Signs Date Time BP-Sys(mm[Hg] BP-Flora(mm[Hg]) HR(bpm) RR(rpm) Temp WT HT HC BMI BSA BMI Percentile O2 Sat(%) 2022 1:40: 00 PM 130 mm[Hg] 89 mm[Hg] 88 {beats}/ min 149 .5 lbs 66 in 24.1 297 kg/m 2 1.77 7 m2 2021 2:43: 00 PM 121 mm[Hg] 78 mm[Hg] 75 {beats}/ min 158 .37 5 lbs 66 in 25.5 6 kg/m 2 1.83 m2 2020 2:40: 00 PM 121 mm[Hg] 62 mm[Hg] 83 {beats}/ min 178 .5 lbs 66 in 28.8 104 kg/m 2 1.94 17 m2 020 2:43: 00 PM 168 mm[Hg] 95 mm[Hg] 103 {beats}/ min 255 .12 5 lbs 66 in 41.1 8 kg/m 2 2.32 m2 2016 2:27: 00 PM 132 mm[Hg] 74 mm[Hg] 87 {beats}/ min 244 .12 5 lbs 66 in 39.4 024 kg/m 2 2.27 08 m2 Social History Name Description Comments Alcohol Never Use status used: Never No Exercise Tobacco Never smoker Disabled Active but no formal exercise History of Procedures Date Ordered Description Order Status 03/21/2017 2:30 PM GLUCOSE BLOOD TEST Reviewed 03/21/2017 12:00 AM HEMOGLOBIN Reviewed 03/21/2017 12:00 AM RVW MEDS BY RX/DR IN RCRD Rev iewed 03/21/2017 12:00 AM ASSAY THYROID STIM HORMONE Re viewed 03/21/2017 12:00 AM GLYCOSYLATED HEMOGLOBIN TEST Reviewed 03/21/2017 12:00 AM COMPREHEN METABOLIC PANEL Rev iewed 03/21/2017 12:00 AM US EXAM OF HEAD AND NECK Revi ewed 03/21/2017 12:00 AM ASSAY OF FREE THYROXINE Revie tue03/21/2017 12:00 AM ASSAY TRIIODOTHYRONINE (T3) R eviewed 03/21/2017 12:00 AM BMI: Calculated BMI above normal parameters - follow up plan documented Reviewed 03/21/2017 12:00 AM Depression Screening : screening documented as positive wt follow up plan documented Reviewed 03/21/2017 12:00 AM PT FALLS ASSESS-DOCD LE1/YR R eviewed 03/21/2017 12:00 AM Influenza immunizati on was not ordered or administered for reasons documented by clinician Reviewed 03/21/2017 12:00 AM PT TOBACCO SCREEN RCVD TLK Re viewed 03/21/2017 12:00 AM MED LIST DOCD IN RD Reviewe d 03/21/2017 12:00 AM RVW MEDS BY RX/ IN RCRD Rev iewed 05/21/2019 3:33 PM US EXAM OF HEAD AND NECK Review ed 05/21/2019 12:00 AM MICROSOMAL ANTIBODY EACH Revie wed 05/21/2019 12:00 AM RVW MEDS BY RX/ IN RCRD Revi ewed 05/21/2019 12:00 AM ASSAY THYROID STIM HORMONE Rev iewed 05/21/2019 12:00 AM GLYCOSYLATED HEMOGLOBIN TEST R eviewed 05/21/2019 12:00 AM COMPREHEN METABOLIC PANEL Revi ewed 05/21/2019 12:00 AM ASSAY OF FREE THYROXINE Review ed 05/21/2019 12:00 AM COMPLETE CBC W/AUTO DIFF WBC R eviewed 05/21/2019 12:00 AM LIPID PANEL Reviewed 05/21/2019 12:00 AM TOTAL CORTISOL Reviewed 05/21/2019 12:00 AM ASSAY OF ACTH Reviewed 05/21/2019 12:00 AM THYROGLOBULIN ANTIBODY Reviewe d 05/31/2019 12:00 AM ROUTINE VENIPUNCTURE Reviewed 10/06/2020 3:05 PM GLUCOSE BLOOD TEST Reviewed 10/06/2020 4:30 PM US EXAM OF HEAD AND NECK Revie wed 07/29/2020 12:00 AM FALLS RISK ASSESSMENT DOCUMEN SOFIA Reviewed 10/07/2020 12:00 AM Depression Screening : screening documented as positive wtih follow up plan documented Reviewed 10/07/2020 12:00 AM BMI: Calculated BMI within normal parameters and documented Reviewed 10/07/2020 12:00 AM TOBACCO NON-USER Reviewed 03/05/2020 12:00 AM DIL RETINA EXAM INTERP REV R eviewed 10/07/2020 12:00 AM Statin Therapy: Sanna ent currently statin therapy user or received order Reviewed 10/07/2020 7:38 AM Depression screen annual Revie wed 10/06/2020 12:00 AM HEMOGLOBIN Reviewed 10/06/2020 12:00 AM RVW MEDS BY RX/DR IN RCRD Rev iewed 10/06/2020 12:00 AM ASSAY THYROID STIM HORMONE Re viewed 10/06/2020 12:00 AM GLYCOSYLATED HEMOGLOBIN TEST Reviewed 10/06/2020 12:00 AM COMPREHEN METABOLIC PANEL Rev iewed 10/06/2020 12:00 AM ASSAY OF FREE THYROXINE Revie wed 10/06/2020 12:00 AM COMPLETE CBC W/AUTO DIFF WBC Reviewed 10/06/2020 12:00 AM LIPID PANEL Reviewed 10/06/2020 12:00 AM TOTAL CORTISOL Reviewed 10/06/2020 12:00 AM THYROGLOBULIN ANTIBODY Review ed 10/06/2020 12:00 AM ROUTINE VENIPUNCTURE Reviewed 10/06/2020 12:00 AM VITAMIN D 25 HYDROXY Reviewed 10/06/2020 12:00 AM ASSAY OF PARATHORMONE Reviewe d 10/06/2020 12:00 AM ASSAY OF THYROGLOBULIN Review ed 10/06/2020 12:00 AM ASSAY OF RENIN Reviewed 10/06/2020 12:00 AM ASSAY OF ALDOSTERONE Reviewed 10/06/2020 12:00 AM MICROSOMAL ANTIBODY EACH Revi ewed 10/08/2021 10:39 AM US EXAM OF HEAD AND NECK Revi ewed 10/07/2021 12:00 AM HEMOGLOBIN Reviewed 10/07/2021 12:00 AM RVW MEDS BY RX/DR IN RCRD Rev iewed 10/07/2021 12:00 AM ASSAY THYROID STIM HORMONE Re viewed 10/07/2021 12:00 AM GLYCOSYLATED HEMOGLOBIN TEST Reviewed 10/07/2021 12:00 AM COMPREHEN METABOLIC PANEL Rev iewed 10/07/2021 12:00 AM ASSAY OF FREE THYROXINE Revie wed 10/07/2021 12:00 AM TOTAL CORTISOL Reviewed 10/07/2021 12:00 AM ASSAY OF ACTH Reviewed 10/07/2021 12:00 AM ROUTINE VENIPUNCTURE Reviewed 10/07/2021 12:00 AM ASSAY OF THYROGLOBULIN Review ed 10/07/2021 12:00 AM ASSAY OF TOTAL TESTOSTERONE R eviewed 10/07/2021 12:00 AM ASSAY OF SEX HORMONE GLOBUL R eviewed 10/07/2021 12:00 AM ASSAY OF FREE TESTOSTERONE Re viewed 10/07/2021 12:00 AM FREE ASSAY (FT-3) Reviewed 10/07/2021 12:00 AM ASSAY OF GONADOTROPIN (LH) Re viewed 10/07/2021 12:00 AM ASSAY OF GONADOTROPIN (FSH) R eviewed 10/13/2022 12:00 AM ROUTINE VENIPUNCTURE Reviewed 10/13/2022 4:40 PM US EXAM OF HEAD AND NECK Revie wed 10/13/2022 12:00 AM RVW MEDS BY RX/ IN RCRD Rev iewed Results Summary Date and Description Results 03/21/2017 12:00 AM GLUCOSE 100.0 mg/dLB UN 20.0 mg/dLCREATININE 0.710 mg/dLSODIUM 141.0 mmol/LPOTASSIUM 4.90 mmol/LCHLORIDE 103.0 mmol/LCO2 30.0 mmol/LCALCIUM 9.80 mg/dLALBUMIN 4.40 g/dLTOTAL BILIRUBIN 0.40 mg/dLALK PHOS 94.0 IU/LSGOT/AST 33.0 IU/LSGPT/ALT 45.0 IU/LeGFR 91.5TOTAL PROTEIN 7.30 g/dLHEMOGLOBIN A1C 5.70 %TSH 1.670 uIU/mLFREE T4 1.130 ng/dLTOTAL T3 1.730 ng/mL 03/21/2017 2:32 PM PHQ9 Score 20 05/21/2019 12:00 AM GLUCOSE 140.0 mg/dLB UN 18.0 mg/dLCREATININE 0.680 mg/dLSODIUM 141.0 mmol/LPOTASSIUM 4.20 mmol/LCHLORIDE 103.0 mmol/LCO2 28.50 mmol/LCALCIUM 9.40 mg/dLALBUMIN 4.60 g/dLTOTAL BILIRUBIN 0.30 mg/dLALK PHOS 114.0 IU/LSGOT/AST 18.50 IU/LSGPT/ALT 23.70 IU/LeGFR 95.5TOTAL PROTEIN 7.20 g/dLCHOLESTEROL 152.0 mg/dLTRIGLYCERIDES 226.0 mg/dLHDL 49.0 mg/dLVLDL 45.10 mg/dLLDL (CALCULATED) 58.0 mg/dLCHOL/HDL RATIO 3.1NON--HDL CHOLESTEROL 103.0 mg/dLHEMOGLOBIN A1C 6.10 %TSH 2.40 uIU/mLCORTISOL 3.70 ug/dLWBC 12.10 x10E3/uLNEU 7.30 x10E3/uLLYM 3.80 x10E3/uLMONO 0.60 x10E3/uLEOS 0.30 x10E3/uLBASO 0.10 x10E3/uLRBC 4.50 x10E6/uLHGB 12.50 g/dLHCT 38.50 %MCV 84.80 fLMCH 27.60 pgMCHC 32.60 g/dLRDW 14.50 %MPV 10.0 fLPLT 319.0 x10E3/uLNEU% 60.40 %LYM% 31.0 %MONO% 5.0 %EOS% 2.50 %BASO% 1.10 %FREE T4 0.750 ng/dLTHYROGLOBULIN ANTIBODY 0.0 IU/mLTPO ANTIBODY 2.0 IU/mL 05/21/2019 9:21 AM ACTH Plas-mCnc 8.0 p g/mL 08/19/2020 3:03 PM Hgb A1c Fr Bld 5.10 % 08/19/2020 3:04 PM Hgb A1c Fr Bld 5.80 % 10/06/2020 12:00 AM GLUCOSE 102.0 mg/dLB UN 12.0 mg/dLCREATININE 0.660 mg/dLSODIUM 140.0 mmol/LPOTASSIUM 4.50 mmol/LCHLORIDE 104.0 mmol/LCO2 28.70 mmol/LCALCIUM 9.0 mg/dLALBUMIN 4.10 g/dLTOTAL BILIRUBIN 0.30 mg/dLALK PHOS 68.0 IU/LSGOT/AST 12.40 IU/LSGPT/ALT 11.80 IU/LeGFR Non- 98.1eGFR Non- 98.1eGFR 118.7TOTAL PROTEIN 6.40 g/dLCHOLESTEROL 143.0 mg/dLTRIGLYCERIDES 113.0 mg/dLHDL 53.0 mg/dLVLDL 22.60 mg/dLLDL (CALCULATED) 67.0 mg/dLCHOL/HDL RATIO 2.7 RatioNON--HDL CHOLESTEROL 89.40 mg/dLHEMOGLOBIN A1C 5.90 %TSH 0.790 uIU/mLCORTISOL 3.60 ug/dLFREE T4 0.630 ng/dLPTH 46.0 pg/mLTHYROGLOBULIN 34.0 ng/mLTHYROGLOBULIN ANTIBODY 0.0 IU/mLVITAMIN D 53.80 ng/mL 10/06/2020 9:34 AM Renin Plas-cCnc 22.4 Aldost SerPl-mCnc 10.10 ng/dL 10/06/2020 3:05 PM Glucose SerPL-mCnc P OC 98.0 mg/dL{RBCs} 10/06/2020 4:07 PM Renin Activity 22.4A ldosterone 10.1Thyroid Peroxidase Ab <9Renin Activity 22.4Aldosterone 10.1Thyroid Peroxidase Ab <9 10/07/2020 7:38 AM PHQ9 Score 9 10/07/2021 12:00 AM ACTH, Plasma 3.10 pg /mLGLUCOSE 90.0 mg/dLBUN 22.0 mg/dLCREATININE 0.720 mg/dLSODIUM 138.0 mmol/LPOTASSIUM 4.0 mmol/LCHLORIDE 104.0 mmol/LCO2 26.60 mmol/LCALCIUM 9.0 mg/dLALBUMIN 4.10 g/dLTOTAL BILIRUBIN 0.40 mg/dLALK PHOS 52.0 IU/LSGOT/AST 10.10 IU/LSGPT/ALT 14.10 IU/LeGFR Non- 88.4eGFR Non- 88.4eGFR 107.0 mL/min/{1.73_m2}TOTAL PROTEIN 6.60 g/dLHEMOGLOBIN A1C 5.70 %TSH 0.750 uIU/mLCORTISOL 0.70 ug/dLLH 0.20 mIU/mLFSH 0.10 mIU/mLFREE T4 0.840 ng/dLTHYROGLOBULIN 25.0 ng/mLFREE T3 2.490 pg/mLTESTOSTERONE 203.40 ng/dLFREE TESTOSTERONE 3.10 ng/dLSHBG 45.90 nmol/L 10/13/2022 2:09 PM ALT SerPl-cCnc 46.0 IU/LAST SerPl-cCnc 27.0 IU/LAlbumin SerPl Elph-mCnc 4.80 g/dLCalcium SerPl-mCnc 8.90 mg/dLHct Fr Bld Auto 39.0 %Ferritin SerPl-mCnc 14.0 ng/mLIron SerPl-mCnc 100.0 dLVit B12 Ser-mCnc 970.0 pg/mLVit D25 SerPl-mCnc 76.0 ng/mL History of Past Illness Name Date of Onset Comments Cervical spondylolysis 10/09/2015 Chronic fatigue syndrome 10/09/2015 Chronic pain syndrome 10/09/2015 Essential Hypertension 10/09/2015 Migraine headache 10/09/2015 Nontoxic multinodular goiter 10/09/2015 Obesity 10/09/2015 GEENA treated with BiPAP 05/21/2019 Bariatric surgery status 11/2019 Gastric Sleeve Chronic fatigue syndrome Feb 20 2017 1:53PM Essential hypertension Feb 20 2017 1:53PM Nontoxic multinodular goiter Feb 20 2017 1:53PM Obesity Feb 20 2017 1:53PM IGT (impaired glucose tolerance) Feb 20 2017 1:53 PM Chronic fatigue syndrome May 21 2019 3:02PM Essential hypertension May 21 2019 3:02PM Nontoxic multinodular goiter May 21 2019 3:02PM Obesity May 21 2019 3:02PM IGT (impaired glucose tolerance) May 21 2019 3:02 PM GEENA treated with BiPAP May 21 2019 3:02PM Chronic fatigue syndrome Oct 06 2020 3:05PM Essential hypertension Oct 06 2020 3:05PM Nontoxic multinodular goiter Oct 06 2020 3:05PM Obesity Oct 06 2020 3:05PM IGT (impaired glucose tolerance) Oct 06 2020 3:0 5PM GEENA treated with BiPAP Oct 06 2020 3:05PM Bariatric surgery status Oct 06 2020 3:05PM Hypokalemia Oct 06 2020 3:05PM 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 3:05PM Chronic fatigue syndrome Oct 07 2021 2:39PM Essential hypertension Oct 07 2021 2:39PM Nontoxic multinodular goiter Oct 07 2021 2:39PM Obesity Oct 07 2021 2:39PM IGT (impaired glucose tolerance) Oct 07 2021 2:3 9PM GEENA treated with BiPAP Oct 07 2021 2:39PM Bariatric surgery status Oct 07 2021 2:39PM Hypokalemia Oct 07 2021 2:39PM 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 2:39PM Hair loss Oct 07 2021 2:39PM Migraine headache Oct 07 2021 2:39PM Menopause Oct 07 2021 2:39PM Chronic fatigue syndrome Oct 13 2022 1:42PM Essential hypertension Oct 13 2022 1:42PM Migraine headache Oct 13 2022 1:42PM Nontoxic multinodular goiter Oct 13 2022 1:42PM Obesity Oct 13 2022 1:42PM IGT (impaired glucose tolerance) Oct 13 2022 1:4 2PM GEENA treated with BiPAP Oct 13 2022 1:42PM Bariatric surgery status Oct 13 2022 1:42PM Hypokalemia Oct 13 2022 1:42PM Cortisol deficiency Oct 13 2022 1:42PM Hair loss Oct 13 2022 1:42PM Menopause Oct 13 2022 1:42PM Payers Insurance Name Company Name Plan Name Plan Number Policy Number Policy Group Number Start Date [facility] [id number] N/A [employer] [place] [employer] [id number] N/A BCBS RENETTA Sepulveda [facility] [id number] N/A [facility] [id number] N/A [facility] [id number] N/A [facility] [id number] N/A [facility] [id number] April [employer] [place] [employer] [id number] Tuesday, 2008 [employer] C[employer]a [id number] Monday, 2016 History of Encounters Visit Date Visit Type Provider 10/13/2022 Established Patient Visit Porter Haas MD 10/07/2021 Established Patient Visit 10/07/2021 Established Patient Visit Porter Haas MD 10/06/2020 Established Patient Visit 10/06/2020 Established Patient Visit 10/06/2020 Established Patient Visit 10/06/2020 Established Patient Visit Porter Haas MD 05/21/2019 Established Patient Visit 05/21/2019 Established Patient Visit Porter Haas MD 03/21/2017 Established Patient Visit Porter Haas MD
[2023-10-07 10:24] VITALS: BP 119/85; PULSE 105; RESP 16; TEMP 36.8; O2SAT 99
[2023-10-07] MEDS: sodium chloride 0.9% 250 ML 75 ML IV (10:36)
[2023-10-07] MEDS: eptinezumab-jjmr 300 MG in sodium chloride 0.9% (100 ml) 100 ML 206 MG IV (10:42)
[2023-10-07 11:45] VITALS: BP 107/71; PULSE 82; RESP 16; TEMP 36.2; O2SAT 99
== END 2023-10-16 23:59 | disposition home or self-care (01) ==
LOC: ONCMED 10:17
PROVIDERS: PCP Internal Medicine; Visit Provider Specialist
DX: G43.711 Chronic migraine without aura, intractable, with status migrainosus (principal)
CPT/HCPCS: 96413; J3032; J7050

== ENCOUNTER 2023-10-13 08:57 | Outpatient (RCR) | payer MEDICARE, OTHER, SELFPAY | END 2023-10-16 23:59 | disposition home or self-care (01) | LOC: SPT 08:57 | PROVIDERS: Visit Provider Internal Medicine | DX: M25.511 Pain in right shoulder (principal); M25.512 Pain in left shoulder; G89.29 Other chronic pain; M54.2 Cervicalgia | CPT/HCPCS: 97110; 97162 ==

== ENCOUNTER 2023-10-17 06:00 | Outpatient (RCR) | payer MEDICARE, OTHER, SELFPAY | END 2023-11-16 23:59 | disposition home or self-care (01) | LOC: SPT 06:00 | PROVIDERS: PCP Internal Medicine; Visit Provider Internal Medicine | DX: M25.511 Pain in right shoulder (principal); M25.512 Pain in left shoulder; G89.29 Other chronic pain; M54.2 Cervicalgia | CPT/HCPCS: 97110; 97140 ==

== ENCOUNTER 2023-12-09 07:24 | Oncology outpatient (recurring) (ONCR) | payer OTHER, MEDICARE, SELFPAY ==
[2023-12-09] VITALS (10 sets, daily range): BP systolic 99–147; BP diastolic 65–79; PULSE 82–112; RESP 16; TEMP 36.2–36.9; O2SAT 97–99
[2023-12-09] MEDS: diphenhydrAMINE 50 mg/mL SDV 1mL 25 MG IVP (08:06)
[2023-12-09] MEDS: ondansetron 2 mg/ML SDV 2 mL 4 MG IVP (08:12)
[2023-12-09] MEDS: dihydroergotamine 1 mg/mL Inj 0.5 MG IVP ×6 (08:28→11:00)
[2023-12-09] MEDS: sodium chloride 0.9% 1,000 ML 500 ML IV (09:29)
[2023-12-09] MEDS: valproic acid inj 500 MG in sodium chloride 0.9% 50 ML 55 MG IV ×2 (11:35→12:25)
[2023-12-09] MEDS: SODIUM CHLORIDE 0.9% IV (12:57)
[2023-12-09] MEDS: METHYLPREDNISOLONE SOD SUCC IV (12:57)
== END 2023-12-17 23:55 | disposition home or self-care (01) ==
PROVIDERS: PCP Internal Medicine; Visit Provider Specialist
DX: G43.711 Chronic migraine without aura, intractable, with status migrainosus (principal)
CPT/HCPCS: 96361; 96365; 96367; 96375; 96376; J1110; J1200; J2405; J2919; J3490; J7030; J7050

== ENCOUNTER 2023-12-30 10:07 | Oncology outpatient (recurring) (ONCR) | payer OTHER, MEDICARE, SELFPAY ==
[2023-12-30 10:54] VITALS: BP 120/78; PULSE 74; RESP 16; TEMP 36.1; O2SAT 95
[2023-12-30] MEDS: sodium chloride 0.9% 250 ML 100 ML IV (11:03)
[2023-12-30] MEDS: eptinezumab-jjmr 300 MG in sodium chloride 0.9% (100 ml) 100 ML 206 MG IV (11:13)
[2023-12-30 11:59] VITALS: BP 123/80; PULSE 75; RESP 16; TEMP 36.2; O2SAT 97
== END 2024-01-16 23:59 | disposition home or self-care (01) ==
PROVIDERS: PCP Internal Medicine; Visit Provider Specialist
DX: G43.711 Chronic migraine without aura, intractable, with status migrainosus (principal); Z79.899 Other long term (current) drug therapy
CPT/HCPCS: 96413; A4222; J3032; J7050

== ENCOUNTER → 2024-02-15 08:16 | Outpatient (BNVA) | payer MEDICARE, OTHER, SELFPAY | PROVIDERS: PCP Internal Medicine; Visit Provider Nurse Practitioner Family | DX: B35.1 Tinea unguium (principal); L57.8 Other skin changes due to chronic exposure to nonionizing radiation; L72.11 Pilar cyst; L81.4 Other melanin hyperpigmentation; D22.5 Melanocytic nevi of trunk; L85.3 Xerosis cutis; L82.1 Other seborrheic keratosis; L65.0 Telogen effluvium; L57.0 Actinic keratosis; L98.8 Other specified disorders of the skin and subcutaneous tissue | CPT/HCPCS: 17000; 99214 ==

== ENCOUNTER 2024-04-02 10:09 | Oncology outpatient (recurring) (ONCR) | payer MEDICARE, OTHER, SELFPAY ==
[2024-04-02 10:36] VITALS: BP 112/59; PULSE 92; RESP 16; TEMP 36.9; O2SAT 96
[2024-04-02] MEDS: eptinezumab-jjmr 300 MG in sodium chloride 0.9% (100 ml) 100 ML 206 MG IV (11:17)
[2024-04-02 11:45] VITALS: BP 106/64; PULSE 73; TEMP 36.6
== END 2024-04-17 23:59 | disposition home or self-care (01) ==
PROVIDERS: PCP Internal Medicine; Visit Provider Specialist
DX: G43.711 Chronic migraine without aura, intractable, with status migrainosus (principal); Z79.899 Other long term (current) drug therapy
CPT/HCPCS: 96413; A4222; J3032

== ENCOUNTER → 2024-04-06 12:08 | Outpatient (BNVA) | payer MEDICARE, OTHER, SELFPAY | PROVIDERS: PCP Internal Medicine; Visit Provider Specialist | DX: G43.711 Chronic migraine without aura, intractable, with status migrainosus (principal) | CPT/HCPCS: 64615 ==

== ENCOUNTER 2024-07-12 14:15 | Oncology outpatient (recurring) (ONCR) | payer OTHER, MEDICARE, SELFPAY ==
[2024-06-25 10:37] VITALS: BP 101/61; PULSE 80; RESP 16; TEMP 36.6; O2SAT 99
[2024-06-25] MEDS: eptinezumab-jjmr 300 MG in sodium chloride 0.9% (100 ml) 100 ML 206 MG IV (10:55)
[2024-06-25 11:28] VITALS: BP 99/57; PULSE 90; RESP 16; TEMP 36.8; O2SAT 99
[2024-07-12] MEDS: ondansetron 2 mg/ML SDV 2 mL 4 MG IVP ×2 (14:17→15:23)
[2024-07-12] MEDS: diphenhydrAMINE 50 mg/mL SDV 1mL 25 MG IVP (14:19)
[2024-07-12] MEDS: dihydroergotamine 1 mg/mL Inj 0.5 MG IVP ×6 (14:26→15:40)
[2024-07-12 14:38] VITALS: BP 103/64; PULSE 78; RESP 16; TEMP 36.3; O2SAT 93
[2024-07-12] MEDS: valproic acid inj 500 MG in sodium chloride 0.9% 50 ML 110 MG IV (15:49)
[2024-07-12] MEDS: ketorolac 30 mg/mL INJ IVP (16:25)
== END 2024-07-16 23:59 | disposition home or self-care (01) ==
PROVIDERS: PCP Internal Medicine; Visit Provider Specialist
DX: Z53.9 Procedure and treatment not carried out, unspecified reason; G43.711 Chronic migraine without aura, intractable, with status migrainosus; Z79.899 Other long term (current) drug therapy
CPT/HCPCS: 96365; 96375; 96376; A4222; J1110; J1200; J1885; J2405; J3032; J3490

== ENCOUNTER 2024-07-31 08:19 | Outpatient (CLI) | payer OTHER, MEDICARE, SELFPAY ==
--- NOTE | 2024-07-31 08:28 | XRR_ITS ---
PROCEDURE INFORMATION: Exam: XR Cervical Spine Exam date and time: 07/31/2024 8:43 AM Age: 58 years old Clinical indication: Radicular pain (radiculopathy); Cervical region; Additional info: Cervical radiculopathy/chronic pain syndrome TECHNIQUE: Imaging protocol: Radiologic exam of the cervical spine. Views: 4 or 5 views. COMPARISON: CR XR chest 1V portable [id number] 08/03/2022 10:06 AM FINDINGS: Bones/joints: Status post C5-C6 ACDF. Vertebral body heights are preserved. No acute fracture. Straightening of the normal lordosis, likely positional. Moderate facet arthrosis at C3-C4 with moderate left neural foraminal stenosis. Soft tissues: Unremarkable. XR/XR cervical spine 4-5V [id number] IMPRESSION: No acute findings.
== END 2024-07-31 08:20 | disposition home or self-care (01) ==
PROVIDERS: Family Provider Specialist; PCP Internal Medicine
DX: M54.12 Radiculopathy, cervical region (principal); G89.4 Chronic pain syndrome; Z98.890 Other specified postprocedural states; M47.892 Other spondylosis, cervical region; M48.02 Spinal stenosis, cervical region
CPT/HCPCS: 72050

== ENCOUNTER 2024-09-05 14:04 | Outpatient (CLI) | payer OTHER, MEDICARE, SELFPAY ==
--- NOTE | 2024-09-05 14:10 | CTR_ITS ---
PROCEDURE INFORMATION: Exam: CT Abdomen And Pelvis Without And With Contrast Exam date and time: 09/05/2024 2:47 PM Age: 58 years old Clinical indication: Other: Hematuria; Prior surgery; Surgery date: 6+ months; Surgery type: Hyst; Additional info: Recurrent and persistent hematuria with unspecified morpholo TECHNIQUE: Imaging protocol: Computed tomography of the abdomen and pelvis without and with contrast. Radiation optimization: All CT scans at this facility use at least one of these dose optimization techniques: automated exposure control; mA and/or kV adjustment per patient size (includes targeted exams where dose is matched to clinical indication); or iterative reconstruction. Contrast material: OMNI; Contrast volume: 100 ml; Contrast route: INTRAVENOUS (IV); COMPARISON: CR XR lumbar spine 2-3V* [id number] 10/20/2020 1:02 PM RADIATION DOSE METRICS: Total DLP (mGy-cm): 909.62 FINDINGS: Lungs: Lingular scarring/atelectasis. Heart: Base of heart is unremarkable as visualized. Diaphragm: Small sliding-type hiatal hernia. Liver: Normal. No mass. Gallbladder and biliary ducts: Normal. No calcified stones. No ductal dilation. Pancreas: Normal. No ductal dilation. Spleen: A few splenules are noted. Adrenal glands: Normal. No mass. Kidneys and ureters: Bilateral nonobstructive nephrolithiasis. Stomach and bowel: Partially visualized breast augmentation status post gastric sleeve. Heavy colonic stool burden. Appendix: No evidence of appendicitis. Intraperitoneal space: Unremarkable. No free air. No significant fluid collection. Vasculature: Unremarkable. No abdominal aortic aneurysm. Lymph nodes: Unremarkable. No enlarged lymph nodes. Urinary bladder: Mild thickening of the anterior bladder wall. A few foci of spiculation are noted of the bladder wall projecting intraluminally (series 7, image 30, 25). Reproductive: Status post hysterectomy. Left oblong adnexal cyst with simple appearance measuring 5.6 x 2.3 x 2.2 cm. Bones/joints: Degenerative changes of the visualized osseous structures, mild. Soft tissues: Stranding of the gluteal fat bilaterally. CT/CT abdomen pelvis wo/w [id number] IMPRESSION: 1. Nonspecific findings of the bladder which can be seen in hemorrhagic cystitis, however difficult to exclude neoplasm. Recommend urology consultation for further assessment and management. 2. Nonobstructive nephrolithiasis bilaterally, although this could be a source of hematuria, the bladder findings are still concerning for primary underlying etiology.
[2024-09-05 14:43] LABS: Blood Urea Nitrogen 20 mg/dL (8-23); Glomerular Filtration Rate 85.4 mL/min (90-130)
[2024-09-05] MEDS: iohexol 350 mg/mL 500 mL Btl (per mL) IV (14:56)
== END 2024-09-05 14:05 | disposition home or self-care (01) ==
LOC: RAD 14:05
PROVIDERS: Radiology Neuroradiology; Family Provider Specialist; PCP Internal Medicine; Visit Provider Obstetrics & Gynecology
DX: N02.9 Recurrent and persistent hematuria with unspecified morphologic changes (principal); R93.89 Abnormal findings on diagnostic imaging of other specified body structures; N20.0 Calculus of kidney; J98.4 Other disorders of lung; K44.9 Diaphragmatic hernia without obstruction or gangrene; Z98.890 Other specified postprocedural states; N83.292 Other ovarian cyst, left side; R93.7 Abnormal findings on diagnostic imaging of other parts of musculoskeletal system; M79.89 Other specified soft tissue disorders
CPT/HCPCS: 74178; 82565; 84520

== ENCOUNTER 2024-09-20 08:45 | Oncology outpatient (recurring) (ONCR) | payer OTHER, MEDICARE, SELFPAY ==
[2024-09-19] MEDS: eptinezumab-jjmr 300 MG in sodium chloride 0.9% (100 ml) 100 ML 206 MG IV (15:30)
[2024-09-19 16:20] VITALS: BP 109/67; PULSE 71; RESP 18; TEMP 37; O2SAT 96
--- NOTE | 2024-09-20 08:45 | MR_ITS ---
WS: [id number] MRI CERVICAL SPINE NONCONTRAST HISTORY: Chronic neck pain. History of migraines. COMPARISON: None available. Technique: Multiplanar, multisequence noncontrast imaging of the cervical spine. Prior anterior cervical fusion at C5-6. Interbody spacer with complete osseous fusion across the spacer. Signal within the cervical cord is normal. Visualized posterior fossa is unremarkable. Craniocervical junction, C1 and C2 relationship, odontoid process and soft tissues are normal. C2-C3: Normal. C3-C4: Diffuse osteophytic ridging in the RIGHT foramen with associated disc bulging. Moderate RIGHT foraminal stenosis. No significant central or LEFT foraminal stenosis. C4-C5: Mild facet arthritis. No stenosis. C5-C6: Normal. C6-C7: Small bilateral disc osteophyte complexes in the foramina. Mild foraminal stenosis, LEFT greater than RIGHT. C7-T1: Normal. There are 3 masses of increased signal on the T2 sequences in the LEFT neck. The largest measures 1.3 x 0.9 cm. A smaller more posterior nodule measures 0.4 cm. Additional more inferior nodule is 0.7 cm. These are within the LEFT thyroid. MR/MR cervical spin wo con* [id number] IMPRESSION: 1. Prior anterior cervical fusion with interbody spacer at C5-6 appears intact . 2. Moderate RIGHT foraminal stenosis at C3-4 due to disc osteophyte disease. 3. Mild foraminal stenosis at C6-7 due to disc osteophyte disease. 4. LEFT thyroid nodules. These can be further evaluated by ultrasound. 5. No signal abnormality within the cord.
== END 2024-10-15 23:59 | disposition home or self-care (01) ==
LOC: RAD 09-21 → ONCMED 09-21 08:31
PROVIDERS: Family Provider Specialist; PCP Internal Medicine; Visit Provider Specialist
DX: R29.898 Other symptoms and signs involving the musculoskeletal system; Z98.1 Arthrodesis status; M48.02 Spinal stenosis, cervical region; M25.78 Osteophyte, vertebrae; E04.2 Nontoxic multinodular goiter; M50.31 Other cervical disc degeneration, high cervical region; M47.892 Other spondylosis, cervical region; Z53.9 Procedure and treatment not carried out, unspecified reason
CPT/HCPCS: 72141; 96413; A4222; J3032

== ENCOUNTER 2024-10-29 15:52 | Outpatient (CLI) | payer OTHER, MEDICARE, SELFPAY ==
--- NOTE | 2024-10-29 15:57 | CTR_ITS ---
PROCEDURE INFORMATION: Exam: CT Abdomen And Pelvis Without And With Contrast Exam date and time: 10/29/2024 4:07 PM Age: 59 years old Clinical indication: Other: Hematuria; Prior surgery; Surgery date: 6+ months; Surgery type: Hyst, tummy tuck; Additional info: Hematuria, bladder wall thickening TECHNIQUE: Imaging protocol: Computed tomography of the abdomen and pelvis without and with contrast. 3D rendering (Not supervised by radiologist): MIP and/or 3D reconstructed images were created by the technologist. Radiation optimization: All CT scans at this facility use at least one of these dose optimization techniques: automated exposure control; mA and/or kV adjustment per patient size (includes targeted exams where dose is matched to clinical indication); or iterative reconstruction. Contrast material: OMNI 350; Contrast volume: 100 ml; Contrast route: INTRAVENOUS (IV); COMPARISON: CT abdomen pelvis wo/w [id number] 09/05/2024 2:47 PM RADIATION DOSE METRICS: Total DLP (mGy-cm): 1947.41 FINDINGS: Liver: Normal. No mass. Gallbladder and biliary ducts: Normal. No calcified stones. No ductal dilation. Pancreas: Normal. No ductal dilation. Spleen: Normal. No splenomegaly. Adrenal glands: Normal. No mass. Kidneys and ureters: There are multiple small hypodensities in the kidneys which are too small to characterize. 1 cm left renal cyst. Small 1-2 mm renal stones bilaterally. No hydronephrosis. Stomach and bowel: There is a small hiatal hernia with postsurgical changes of the stomach. Appendix: No evidence of appendicitis. Intraperitoneal space: Unremarkable. No free air. No significant fluid collection. Vasculature: Unremarkable. No abdominal aortic aneurysm. Lymph nodes: Unremarkable. No enlarged lymph nodes. Urinary bladder: There is merv-ew-[id number] wall thickening of the urinary bladder diffusely with slight trabeculation/septae. In the left pelvis there is an ovoid cystic lesion measuring 4.3 x 2.2 cm, fluid attenuation. It is separate from but adjacent to the bladder. Reproductive: Status post hysterectomy. Bones/joints: Unremarkable. No acute fracture. Soft tissues: Unremarkable. CT/CT abdomen pelvis wo/w [id number] IMPRESSION: 1. Diffuse bladder wall thickening with slight trabeculation/septae. No appreciable interval change. 2. Small hiatal hernia status post gastric surgery. COMMENTS: Consistent with the [employer]'s Incidental Findings Committee white paper (J Am Janell Radiol 2018): Any incidental renal lesion less than 1 cm or classified as too small to characterize, or any incidental cystic renal lesion characterized as simple-appearing, is likely benign. No follow-up imaging is recommended for these lesions per consensus recommendations based on imaging criteria.
[2024-10-29] MEDS: iohexol 350 mg/mL 500 mL Btl (per mL) IV (16:12)
== END 2024-10-29 15:53 | disposition home or self-care (01) ==
LOC: RAD 15:53
PROVIDERS: PCP Internal Medicine; Visit Provider Student in an Organized Health Care Education/Training Program
DX: R31.9 Hematuria, unspecified (principal); N32.89 Other specified disorders of bladder; K44.9 Diaphragmatic hernia without obstruction or gangrene
CPT/HCPCS: 74178

== ENCOUNTER 2024-11-12 12:39 | Oncology outpatient (recurring) (ONCR) | payer OTHER, MEDICARE, SELFPAY ==
[2024-11-12] MEDS: ondansetron 2 mg/ML SDV 2 mL 4 MG IVP (13:48)
[2024-11-12] MEDS: diphenhydrAMINE 50 mg/mL SDV 1mL 25 MG IVP (13:56)
[2024-11-12 17:03] VITALS: BP 103/58; PULSE 64; TEMP 36.4; O2SAT 97
== END 2024-11-15 23:59 | disposition home or self-care (01) ==
PROVIDERS: PCP Internal Medicine; Visit Provider Specialist
DX: R29.898 Other symptoms and signs involving the musculoskeletal system (principal); Z98.1 Arthrodesis status; M48.02 Spinal stenosis, cervical region; M25.78 Osteophyte, vertebrae; E04.2 Nontoxic multinodular goiter; M50.31 Other cervical disc degeneration, high cervical region; M47.892 Other spondylosis, cervical region; Z53.9 Procedure and treatment not carried out, unspecified reason; G43.711 Chronic migraine without aura, intractable, with status migrainosus; Z79.899 Other long term (current) drug therapy
CPT/HCPCS: 96374; 96375; 96376; J1110; J1200; J1885; J2405

== ENCOUNTER 2024-12-19 13:53 | Oncology outpatient (recurring) (ONCR) | payer OTHER, MEDICARE, SELFPAY ==
[2024-12-19] MEDS: eptinezumab-jjmr 300 MG in sodium chloride 0.9% (100 ml) 100 ML 206 MG IV (14:23)
[2024-12-19 15:32] VITALS: BP 92/55; PULSE 76; RESP 17; TEMP 36.8; O2SAT 95
== END 2025-01-15 23:59 | disposition home or self-care (01) ==
PROVIDERS: PCP Internal Medicine; Visit Provider Specialist
DX: G43.711 Chronic migraine without aura, intractable, with status migrainosus (principal); Z79.899 Other long term (current) drug therapy
CPT/HCPCS: 96413; A4222; J3032

== ENCOUNTER 2024-12-27 06:10 | Day surgery (SDC) | payer OTHER, MEDICARE, SELFPAY ==
[2024-12-27 06:20] VITALS: BMI 23.8
--- NOTE | 2024-12-27 06:44 | P.ANESASSM_ITS ---
Pre-Anesthetic Assessment Height/Weight: Height 1.68 m Weight 67.132 kg Preop Diagnosis: screening colonscopy Operation Date: 12/27/24 07:00 Proposed Procedures p Colonoscopy 03350, G0121, Z12.11(Not Applicable) - Aden Ashraf MD Was Beta Lorenzo taken within 24 hours: N/A Was Clonidine taken within 24 hours: N/A Last intake: Intake Last Liquid Date 12/26/24 Last Liquid Time 21:30 Last Solid Date 12/25/24 Social No alcohol and No tobacco Exam alert, oriented x 3, clear to auscultation bilaterally and regular rate & rhythm Airway Submandibular: within normal limits Cervical ROM: within normal limits Mallampati: Class I Dentition: full History/ROS No significant history except as noted Pulmonary None reported CV/HEM Hypertension None reported Hepatic None reported GI None reported Metabolic None reported Musc/skel None reported Neuropsych Headache Anesthetic Plan ASA status: 2 Anesthesia: Anesthesia Evaluation and MAC Risk of > 500 ml blood loss (7ml/kg in children): No Medications/Allergies Home Medications ?Medication ?Instructions ?Recorded ?Confirmed ?Last Taken ?Type atorvastatin 40 mg tablet 40 mg PO BEDTIME 06/04/2012/25/24 History cholecalciferol (vitamin D3) 25 25 mcg PO DAILY 12/24/24 12/25/24 History mcg (1,000 unit) chewable tablet (Vitamin D3) diphenhydramine HCl 50 mg/mL 100 mg IM BID PRN Migrain e Headache 06/04/20 12/24/24 12/22/24 History injection solution fluticasone propionate 50 2 spray intranasal DAILY 12/24/24 12/24/24 History mcg/actuation nasal spray,suspension (Flonase Allergy Relief) melatonin 10 mg tablet 20 mg PO BEDTIME 06/04/2012/25/24 History silodosin 8 mg capsule 8 mg PO QAM 11/03/20 5 12/25/24 History potassium chloride 20 mEq 20 meq PO BID 02/26/2112/2412/25/24 History tablet,extended release(part/cryst) diclofenac sodium 1 % topical gel 4 g topical BID PRN Pain 07/30/22 12/24/24 12/21/24 History doxepin 25 mg capsule 25 mg PO BEDTIME 07/30/2212/23/24 History levothyroxine 50 mcg tablet 50 mcg PO QAM 07/30/2212/1012/25/24 History magnesium 250 mg tablet 250 mg PO DAILY 07/30/2212/1012/25/24 History topiramate 50 mg tablet 150 mg PO BID 07/30/2212/2412/24/24 History ubrogepant 100 mg tablet (Ubrelvy) 100 mg PO BID PRN M igraine Headache 07/30/22 12/24/24 12/22/24 History venlafaxine 100 mg tablet 100 mg PO QAM 07/30/2212/2412/25/24 History venlafaxine 50 mg tablet 50 mg PO DAILY 07/30/2212/1012/25/24 History ascorbic acid (vitamin C) 1,000 mg 1,000 mg PO DAILY 0 08/03/22 12/24/24 12/25/24 History tablet (Vitamin C) clonazepam 2 mg tablet 2 mg PO BEDTIME 08/03/2212/1012/25/24 History dihydroergotamine 0.5 mg/pump act. See Rx Instructions .Route .COMPLEX 08/03/22 12/24/24 12/23/24 History (4 mg/mL) nasal spray glucosamine sulfate 500 mg tablet 500 mg PO BID 12/24/24 12/24/24 History (Glucosamine) levetiracetam 500 mg tablet 250 mg PO BID 08/03/2212/1012/25/24 History memantine 10 mg tablet 10 mg PO BID 08/03/2212/25/24 History tizanidine 4 mg tablet 8 mg PO BEDTIME 08/03/2212/1012/25/24 History pantoprazole 40 mg tablet,delayed 40 mg PO BID #60 tab s 08/04/22 12/24/24 12/25/24 Rx release rimegepant 75 mg disintegrating 75 mg PO EVERY OTHER D AY #60 tabs 02/24/23 12/24/24 12/25/24 Rx tablet (Nurtec ODT) eptinezumab-jjmr 100 mg/mL 300 mg (3 mL) IV ONCE #3 mL 01/24/24 12/24/24 12/17/24 Rx intravenous solution (Vyepti) amitriptyline 100 mg tablet 100 mg PO DAILY 07/06/24 0 12/24/24 12/25/24 History divalproex 125 mg tablet,delayed 125 mg PO BID 5 12/24/24 12/24/24 History release ketorolac 30 mg/mL (1 mL) 30 mg IM DAILY PRN Headache 07/06/24 12/24/24 12/19/24 History injection solution lisdexamfetamine 30 mg capsule 30 mg PO DAILY 07/06/24 12/24/24 12/25/24 History progesterone micronized 200 mg 200 mg PO BEDTIME 07/0612/24/24 12/23/24 History capsule spironolactone 25 mg tablet 25 mg PO DAILY 07/06/2412/25/24 History sumatriptan succinate 100 mg tablet 100 mg PO DIREC SOFIA PRN Headache 07/06/24 12/24/24 12/21/24 History onabotulinumtoxinA 100 unit 155 unit IM .[id number] #2 ea 08/29/24 12/24/24 10/30/24 Rx solution for injection (Botox) ondansetron 8 mg disintegrating 8 mg PO Q8H PRN nausea and 12/18/24 12/24/24 12/22/24 Rx tablet vomiting #3 tabs chlorzoxazone 500 mg tablet 500 mg PO TID PRN muscle s pasm #90 12/25/24 12/27/24 Unknown Rx tabs Allergies Allergy/AdvReac Type Severity Reaction Status Date / Time dexamethasone AdvReac GASTRIC Verified 12/27/24 06:37 SLEEVE, IV IS FINE hydrocodone AdvReac ITCHING Verified 12/27/24 06:37 nebivolol (From Bystolic) AdvReac SWELLING Verified 12/27/24 06:37 NSAIDS (Non-Steroidal AdvReac D/T Verified 12/27/24 06:37 Anti-Inflamma GASTRIC SLEEVE Sulfa (Sulfonamide AdvReac RASH Verified 12/27/24 06:37 Antibiotics) [facility] Anesthesia Medical History Hyperlipidemia Essential hypertension Fibromyalgia Hypothyroidism Migraine Surgical History History of neck surgery History of hysterectomy S/P gastric surgery LAP GASTRIC SLEEVE Family History Mother Cancer RECTAL Father Graves disease Sister Migraines Grandmother Migraines Diabetes Hypertension Brother Hypertension Grandfather Dementia Social History Smoking and tobacco/nicotine status: never used tobacco/nicotine Alcohol intake: never Substance/Drug Use: never Caregiver/support person: Yes Lives independently: Yes Data Anesthesia Cardiac Studies: Echocardiogram 08/03/22 Sestamibi Stress Test (Cardiology) 08/03
--- NOTE | 2024-12-27 06:44 | ANES.PREANE2 ---
Pre-Anesthetic Assessment Height/Weight: Height 1.68 m Weight 67.132 kg Preop Diagnosis: screening colonscopy Operation Date: 12/27/24 07:00 Proposed Procedures p Colonoscopy 46554, G0121, Z12.11(Not Applicable) - Aden Ashraf MD Was Beta Lorenzo taken within 24 hours: N/A Was Clonidine taken within 24 hours: N/A Last intake: Intake Last Liquid Date 12/26/24 Last Liquid Time 21:30 Last Solid Date 12/25/24 Social No alcohol and No tobacco Exam alert, oriented x 3, clear to auscultation bilaterally and regular rate & rhythm Airway Submandibular: within normal limits Cervical ROM: within normal limits Mallampati: Class I Dentition: full History/ROS No significant history except as noted Pulmonary None reported CV/HEM Hypertension None reported Hepatic None reported GI None reported Metabolic None reported Musc/skel None reported Neuropsych Headache Anesthetic Plan ASA status: 2 Anesthesia: Anesthesia Evaluation and MAC Risk of > 500 ml blood loss (7ml/kg in children): No Medications/Allergies Home Medications ?Medication ?Instructions ?Recorded ?Confirmed ?Last Taken ?Type atorvastatin 40 mg tablet 40 mg PO BEDTIME 06/04/20 12/24/24 12/25/24 History cholecalciferol (vitamin D3) 25 25 mcg PO DAILY 06/04/20 12/24/24 12/25/24 History mcg (1,000 unit) chewable tablet (Vitamin D3) diphenhydramine HCl 50 mg/mL 100 mg IM BID PRN Migraine Headache 06/04/20 12/24/24 12/22/24 History injection solution fluticasone propionate 50 2 spray intranasal DAILY 06/04/20 12/24/24 12/24/24 History mcg/actuation nasal spray,suspension (Flonase Allergy Relief) melatonin 10 mg tablet 20 mg PO BEDTIME 06/04/20 12/24/24 12/25/24 History silodosin 8 mg capsule 8 mg PO QAM 11/03/20 12/24/24 12/25/24 History potassium chloride 20 mEq 20 meq PO BID 02/26/21 12/24/24 12/25/24 History tablet,extended release(part/cryst) diclofenac sodium 1 % topical gel 4 g topical BID PRN Pain 07/30/22 12/24/24 12/21/24 History doxepin 25 mg capsule 25 mg PO BEDTIME 07/30/22 12/24/24 12/23/24 History levothyroxine 50 mcg tablet 50 mcg PO QAM 07/30/22 12/24/24 12/25/24 History magnesium 250 mg tablet 250 mg PO DAILY 07/30/22 12/24/24 12/25/24 History topiramate 50 mg tablet 150 mg PO BID 07/30/22 12/24/24 12/24/24 History ubrogepant 100 mg tablet (Ubrelvy) 100 mg PO BID PRN Migraine Headache 07/30/22 12/24/24 12/22/24 History venlafaxine 100 mg tablet 100 mg PO QAM 07/30/22 12/24/24 12/25/24 History venlafaxine 50 mg tablet 50 mg PO DAILY 07/30/22 12/24/24 12/25/24 History ascorbic acid (vitamin C) 1,000 mg 1,000 mg PO DAILY 08/03/22 12/24/24 12/25/24 History tablet (Vitamin C) clonazepam 2 mg tablet 2 mg PO BEDTIME 08/03/22 12/24/24 12/25/24 History dihydroergotamine 0.5 mg/pump act. See Rx Instructions .Route .COMPLEX 08/03/22 12/24/24 12/23/24 History (4 mg/mL) nasal spray glucosamine sulfate 500 mg tablet 500 mg PO BID 08/03/22 12/24/24 12/24/24 History (Glucosamine) levetiracetam 500 mg tablet 250 mg PO BID 08/03/22 12/24/24 12/25/24 History memantine 10 mg tablet 10 mg PO BID 08/03/22 12/24/24 12/25/24 History tizanidine 4 mg tablet 8 mg PO BEDTIME 08/03/22 12/24/24 12/25/24 History pantoprazole 40 mg tablet,delayed 40 mg PO BID #60 tabs 08/04/22 12/24/24 12/25/24 Rx release rimegepant 75 mg disintegrating 75 mg PO EVERY OTHER DAY #60 tabs 02/24/23 12/24/24 12/25/24 Rx tablet (Nurtec ODT) eptinezumab-jjmr 100 mg/mL 300 mg (3 mL) IV ONCE #3 mL 01/24/24 12/24/24 12/17/24 Rx intravenous solution (Vyepti) amitriptyline 100 mg tablet 100 mg PO DAILY 07/06/24 12/24/24 12/25/24 History divalproex 125 mg tablet,delayed 125 mg PO BID 07/06/24 12/24/24 12/24/24 History release ketorolac 30 mg/mL (1 mL) 30 mg IM DAILY PRN Headache 07/06/24 12/24/24 12/19/24 History injection solution lisdexamfetamine 30 mg capsule 30 mg PO DAILY 07/06/24 12/24/24 12/25/24 History progesterone micronized 200 mg 200 mg PO BEDTIME 07/06/24 12/24/24 12/23/24 History capsule spironolactone 25 mg tablet 25 mg PO DAILY 07/06/24 12/24/24 12/25/24 History sumatriptan succinate 100 mg tablet 100 mg PO DIRECTED PRN Headache 07/06/24 12/24/24 12/21/24 History onabotulinumtoxinA 100 unit 155 unit IM .[id number] #2 ea 08/29/24 12/24/24 10/30/24 Rx solution for injection (Botox) ondansetron 8 mg disintegrating 8 mg PO Q8H PRN nausea and 12/18/24 12/24/24 12/22/24 Rx tablet vomiting #3 tabs chlorzoxazone 500 mg tablet 500 mg PO TID PRN muscle spasm #90 12/25/24 12/27/24 Unknown Rx tabs Allergies Allergy/AdvReac Type Severity Reaction Status Date / Time dexamethasone AdvReac GASTRIC Verified 12/27/24 06:37 SLEEVE, IV IS FINE hydrocodone AdvReac ITCHING Verified 12/27/24 06:37 nebivolol (From Bystolic) AdvReac SWELLING Verified 12/27/24 06:37 NSAIDS (Non-Steroidal AdvReac D/T Verified 12/27/24 06:37 Anti-Inflamma GASTRIC SLEEVE Sulfa (Sulfonamide AdvReac RASH Verified 12/27/24 06:37 Antibiotics) [facility] Anesthesia Medical History Hyperlipidemia Essential hypertension Fibromyalgia Hypothyroidism Migraine Surgical History History of neck surgery History of hysterectomy S/P gastric surgery LAP GASTRIC SLEEVE Family History Mother Cancer RECTAL Father Graves disease Sister Migraines Grandmother Migraines Diabetes Hypertension Brother Hypertension Grandfather Dementia Social History Smoking and tobacco/nicotine status: never used tobacco/nicotine Alcohol intake: never Substance/Drug Use: never Caregiver/support person: Yes Lives independently: Yes Data Anesthesia Cardiac Studies: Echocardiogram 08/03/22 Sestamibi Stress Test (Cardiology) 08/03/22
[2024-12-27 06:48] VITALS: BP 111/49; PULSE 95; RESP 18; TEMP 36.6; O2SAT 95
--- NOTE | 2024-12-27 06:56 | W.PM.OPSUD ---
Surgery/Procedure H&P Update DATE OF PROCEDURE: December 27, 2024 DATE H&P PERFORMED: 12/18/24 H&P UPDATE INFORMATION: I have reviewed H&P completed within last 30 days, I have examined patient prior to procedure, No changes to prior documentation, H&P is in [facility] EMR on date indicated and Risks and benefits of the procedure reviewed PREOP DIAGNOSIS: screening colonscopy PLANNED PROCEDURE: Operation Date: 12/27/24 07:00 Proposed Procedures p Colonoscopy 07497, G0121, Z12.11(Not Applicable) - Aden Ashraf MD
--- NOTE | 2024-12-27 07:22 | PC.NURSE ---
Cecum time 0703
[2024-12-27 07:31] VITALS: BP 111/49; PULSE 95; RESP 18; TEMP 36.1; O2SAT 95
[2024-12-27 07:46] VITALS: BP 114/70; PULSE 76; RESP 18; O2SAT 95
--- NOTE | 2024-12-27 08:20 | ANE.PACU2 ---
Inpatient post-anesthesia follow up: Airway intact: Yes Vital signs: Temperature 97.0 F Pulse Rate 76 Respiratory Rate 18 Blood Pressure 114/70 Pulse Oximetry 95 Oxygen Delivery Me thod Room Air Oxygen Flow Rate Fraction of Inspir ed Oxygen Hydration adequate: Yes Nausea and vomiting: No Pain level: 1 Mental status: Baseline
--- NOTE | 2024-12-27 13:09 | ANE.PACU2 ---
Inpatient post-anesthesia follow up: Airway intact: Yes Vital signs: Temperature 97.0 F Pulse Rate 76 Respiratory Rate 18 Blood Pressure 114/70 Pulse Oximetry 95 Oxygen Delivery Me thod Room Air Oxygen Flow Rate Fraction of Inspir ed Oxygen Hydration adequate: Yes Nausea and vomiting: No Mental status: Baseline
== END 2024-12-27 07:56 | disposition home or self-care (01) ==
PROVIDERS: Visit Provider Surgery
PROC: 0DJD8ZZ Inspection of Lower Intestinal Tract, Via Natural or Artificial Opening Endoscopic (ICD-10-PCS; CPT 45378; principal; 2024-12-27 07:00)
DX: Z12.11 Encounter for screening for malignant neoplasm of colon (principal); K64.8 Other hemorrhoids; I10 Essential (primary) hypertension; K21.9 Gastro-esophageal reflux disease without esophagitis; E78.5 Hyperlipidemia, unspecified; E03.9 Hypothyroidism, unspecified; Z80.0 Family history of malignant neoplasm of digestive organs
CPT/HCPCS: 45378; J2704; J7030; J9999

== ENCOUNTER 2025-03-18 13:45 | Oncology outpatient (recurring) (ONCR) | payer OTHER, MEDICARE, SELFPAY ==
[2025-03-18] MEDS: eptinezumab-jjmr 300 MG in sodium chloride 0.9% (100 ml) 100 ML 206 MG IV (14:54)
[2025-03-18 15:21] VITALS: BP 99/64; PULSE 80; RESP 17; TEMP 37.5; O2SAT 98
== END 2025-04-17 23:59 | disposition home or self-care (01) ==
PROVIDERS: PCP Internal Medicine; Visit Provider Specialist
DX: G43.711 Chronic migraine without aura, intractable, with status migrainosus (principal); Z79.899 Other long term (current) drug therapy
CPT/HCPCS: 96365; A4222; J3032